=== PATIENT | male | born 1950 ===

== ENCOUNTER 2017-10-29 07:51 | Inpatient (IN) ==
[2017-10-29] MEDS ORDERED: Diphtheria/Tetanus/Pertussis Vaccine Inj 0.5 ML Syringe IM ONE (08:06)
[2017-10-29 08:20] LABS: Baso # (Auto) 0.1 th/mm3 (0.0-0.2); Baso % (Auto) 0.7 % (0.0-2.0); Eos # (Auto) 0.2 th/mm3 (0.0-0.4); Eos % (Auto) 0.8 % (0.0-4.0); Hematocrit 42.4 % (39.0-51.0); Hemoglobin 14.2 gm/dL (13.0-17.0); Lymph # (Auto) 2.8 th/mm3 (1.0-4.8); Lymph % (Auto) 14.3 % (9.0-44.0); Mean Corpuscular HGB Conc 33.5 % (32.0-36.0); Mean Corpuscular Hemoglobin 30.6 pg (27.0-34.0); Mean Corpuscular Volume 91.5 fL (80.0-100.0); Mean Platelet Volume 9.1 fL (7.0-11.0); Mono # (Auto) 0.7 th/mm3 (0.0-0.9); Mono % (Auto) 3.8 % (0.0-8.0); Neut # (Auto) 15.6 th/mm3 (1.8-7.7); Neut % (Auto) 80.4 % (16.0-70.0); Platelet Count 240 th/mm3 (150-450); Red Blood Count 4.64 mil/mm3 (4.50-5.90); Red Cell Distribution Width 14.3 % (11.6-17.2); White Blood Count 19.4 th/mm3 (4.0-11.0)
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
[2017-10-29 08:35] LABS: Activated Partial Thrombo Time 23.4 sec (24.3-30.1); INR 1.1 Ratio
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
[2017-10-29] MEDS ORDERED: Morphine Inj 4 MG/ML Vial IV.PUSH ONE ×2 (08:39→09:53)
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
[2017-10-29] MEDS ORDERED: [UNRECOGNIZED DRUG - REMARK] OTHER SCH (10:15)
[2017-10-29] MEDS ORDERED: Promethazine 25 MG Supp RECTAL PRN (10:16)
[2017-10-29] MEDS ORDERED: Morphine Inj 4 MG/ML Vial IV.PUSH PRN (10:16)
[2017-10-29] MEDS ORDERED: Post-op Orders (for Pharmacy) OTHER STA (10:16)
[2017-10-29] MEDS ORDERED: Bisacodyl 10 MG Supp RECTAL PRN (10:16)
[2017-10-29] MEDS ORDERED: Naloxone Inj 0.4 MG/ML Vial IV.PUSH PRN (10:24)
[2017-10-29] MEDS ORDERED: Methocarbamol Inj 1,000 MG in Sodium Chlor 0.9% Inj 240 ML IV.SIG SCH (11:00)
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
[2017-10-29] MEDS: Lidocaine 5% Patch T-DERMAL SCH (13:39)
[2017-10-29] MEDS: Morphine Inj 30 MG/30 ML PCA.VIAL PCA PRN (14:59)
--- NOTE | 2017-10-29 15:43 | ECHRPT ---
Indication: ELEVATED TROPONINS CONCLUSIONS The left ventricular systolic function is normal with an estimated ejection fraction in the range of 60-65%. Normal left ventricular size. Wall thickness is normal. No regional wall motion abnormalities are present on kaitlin limited views. BP: / HR: Rhythm: MEASUREMENTS (Male / Female) Normal Values Technical Quality:Very technically difficult study M-MODE LV Diastolic Diameter MM 6.3 cm 4.2 - 5.9 / 3.9 - 5.3 cm LV Systolic Diameter MM 4.4 cm LV Ejection Fraction MM Teich 55.9 % IVS Diastolic Thickness MM 1.1 cm 0.6 - 1.0 / 0.6 - 0.9 cm LVPW Diastolic Thickness MM 1.1 cm 0.6 - 1.0 / 0.6 - 0.9 cm LV Relative Wall Thickness MM 0.3 0.24 - 0.42 / 0.22 - 0.42 FINDINGS LEFT VENTRICLE The left ventricular systolic function is normal with an estimated ejection fraction in the range of 60-65%. Normal left ventricular size. Wall thickness is normal. No regional wall motion abnormalities are seen but not all LV segments are visualized. RIGHT VENTRICLE Free wall of RV tabitha normally. LEFT ATRIUM The left atrium appears unremarkable. RIGHT ATRIUM The right atrium appears unremarkable ATRIAL SEPTUM The interatrial septum not well visualized. AORTA The aortic root and proximal ascending aorta are not well visualized. MITRAL VALVE Structurally normal mitral valve. No MR. AORTIC VALVE The aortic valve is not well visualized. TRICUSPID VALVE Structurally normal tricuspid valve. No tricuspid regurgitation. PULMONARY VALVE The pulmonary valve is not well visualized. VESSELS The inferior vena cava is normal in size. PERICARDIUM No pericardial effusion. Conrad Garner MD (Electronically Signed) Final Date:29 October 2017 14:56
--- NOTE | 2017-10-29 16:42 | ECG ---
Date Performed: 10/29/2017 Time Performed: 09:05:35 PTAGE: 66 years EKG: Sinus rhythm RIGHT BUNDLE BRANCH BLOCK ABNORMAL ECG NO PREVIOUS TRACING DOCTOR: Kath Carranza Interpretating Date/Time 10/29/2017 16:39:55
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
[2017-10-29] MEDS: Methocarbamol Inj 1,000 MG in Sodium Chlor 0.9% Inj 240 ML IV.SIG SCH (22:08)
[2017-10-29] MEDS: Famotidine 20 MG Tablet PO SCH (22:10)
[2017-10-29] MEDS: Senna/Docusate Sodium 8.6/50 MG Tablet PO SCH (22:11)
[2017-10-30 03:24] LABS: Baso % (Auto) 0.1 % (0.0-2.0); Hemoglobin 13.4 gm/dL (13.0-17.0); Lymph # (Auto) 1.2 th/mm3 (1.0-4.8); Lymph % (Auto) 9.2 % (9.0-44.0); Mean Corpuscular HGB Conc 33.4 % (32.0-36.0); Mean Corpuscular Hemoglobin 30.6 pg (27.0-34.0); Mean Corpuscular Volume 91.5 fL (80.0-100.0); Mean Platelet Volume 9.2 fL (7.0-11.0); Mono # (Auto) 1.1 th/mm3 (0.0-0.9); Mono % (Auto) 8.4 % (0.0-8.0); Neut # (Auto) 10.5 th/mm3 (1.8-7.7); Neut % (Auto) 82.3 % (16.0-70.0); Platelet Count 168 th/mm3 (150-450); Red Blood Count 4.37 mil/mm3 (4.50-5.90); Red Cell Distribution Width 14.2 % (11.6-17.2); White Blood Count 12.7 th/mm3 (4.0-11.0)
[2017-10-30 03:49] LABS: Albumin 3.3 g/dL (3.4-5.0); Anion Gap 10 meq/L (5-15); Blood Urea Nitrogen 32 mg/dL (7-18); Calcium 7.9 mg/dL (8.5-10.1); Carbon Dioxide 23.3 meq/L (21.0-32.0); Chloride 110 meq/L (98-107); Glucose,Random 128 mg/dL (74-106); Potassium 4.5 meq/L (3.5-5.1); Sodium 143 meq/L (136-145)
[2017-10-30 03:58] LABS: Alanine Aminotransferase 1418 U/L (12-78); Alkaline Phosphatase 66 U/L (45-117); Aspartate Aminotransferase 1297 U/L (15-37); Total Protein 5.9 g/dL (6.4-8.2)
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
[2017-10-30] MEDS: Methocarbamol Inj 1,000 MG in Sodium Chlor 0.9% Inj 240 ML IV.SIG SCH (04:56)
--- NOTE | 2017-10-30 08:54 | P.PNCA ---
Subjective Interval history: Pain with inspiration. No angina-like pain Physical Exam Vital signs: Vital Signs 10/29/17 10:12 10/29/17 10:58 10/29/17 11:10 Temperature Pulse Rate 78 Respiratory Rate 21 26 H 21 Blood Pressure 116/64 Pulse Oximetry 99 10/29/17 13:00 10/29/17 14:00 10/29/17 15:00 Temperature Pulse Rate 80 88 101 H Respiratory Rate 20 24 24 Blood Pressure 130/75 112/67 116/72 Pulse Oximetry 100 98 100 10/29/17 16:00 10/29/17 17:00 10/29/17 18:00 Temperature 99.1 F Pulse Rate 103 H 101 H 106 H Respiratory Rate 25 H 26 H 18 Blood Pressure 116/72 126/78 119/55 L Pulse Oximetry 100 100 100 10/29/17 19:00 10/29/17 20:00 10/30/17 00:00 Temperature 97.6 F 98.7 F Pulse Rate 100 H 100 H 113 H Respiratory Rate 30 H 26 H Blood Pressure 102/55 L 139/79 Pulse Oximetry 100 100 10/30/17 04:00 10/30/17 08:16 Temperature 98.7 F Pulse Rate 108 H Respiratory Rate 22 Blood Pressure 119/76 Pulse Oximetry 99 98 Intake & Output 10/29/17 10/30/17 10/30/17 18:59 06:59 18:59 Intake Total 250 / 250 1490 / 1490 250 / 250 Output Total 0 / 0 Balance 250 / 250 1490 / 1490 250 / 250 Weight 100.6 kg 100.6 kg Intake: IV 250 / 250 1250 / 1250 250 / 250 LR 1000 mL Inj 1,000 ML @ 100 1000 / 1000 mls/hr IV.CONT .Q10H [facility] Rx#: [id number] Robaxin Inj 1,000 MG In NS Inj 250 / 250 250 / 250 250 / 250 240 ML @ 500 mls/hr IV.SIG Q8H [facility] Rx#:[id number] Oral 240 / 240 Output: Urine 0 / 0 Other: Date of Last Bowel Movement 10/29/17 10/29/17 # Bowel Movements 0 Weight On Admission 100.6 kg Narrative: Alert VSS Tele - brief sinus matty yest and one ventricular couplet Chest clear CV S1S2 RRR no edema Assessment and Plan - Assessment (1) Syncope Code(s): R55 - Syncope and collapse Status: Acute Plan: Strongly suggestive of vasovagal: lifetime history associated with needles (2) Elevated troponin Code(s): R74.8 - Abnormal levels of other serum enzymes Status: Acute Plan: Suspicious for myocardial contusion - overall LV/RV function preserved
[2017-10-30] MEDS: Morphine Inj 30 MG/30 ML PCA.VIAL PCA PRN (09:44)
[2017-10-30] MEDS: Famotidine 20 MG Tablet PO SCH (10:49)
[2017-10-30] MEDS: Lidocaine 5% Patch T-DERMAL SCH (10:50)
[2017-10-30] MEDS: Senna/Docusate Sodium 8.6/50 MG Tablet PO SCH (10:50)
[2017-10-30] MEDS ORDERED: Sodium Chlor 0.9% Inj 500 ML IV.SIG ONE ×2 (12:00)
[2017-10-30] MEDS ORDERED: Lidocaine PF 1% Inj 5 ML Syringe INFILTRATN ONE (12:00)
[2017-10-30] MEDS ORDERED: Phenylephrine/NS 1000 MCG/10ML Syringe IV.PUSH ONE (12:00)
[2017-10-30] MEDS ORDERED: Esmolol Bolus Inj 100 MG/10 ML Vial IV.PUSH ONE (12:00)
[2017-10-30] MEDS ORDERED: Normosol-R pH 7.4 Inj 4,000 ML IV.CONT ONE (12:00)
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
--- NOTE | 2017-10-30 15:48 | MR ---
EXAM DATE: 10/30/2017 3:18 PM EDT AGE/SEX: 66 years / Male INDICATIONS: Trauma. Weakness and intermittent tingling in hands, back spasms CLINICAL DATA: This is the patient's subsequent encounter. Patient reports that signs and symptoms h ave been present for 2 days and indicates a pain score of 5/10. MEDICAL/SURGICAL HISTORY: . L Ear Squamous Cell Carcinoma and Basal Cell Cholecystectomy. R 2n d digit amputation, Tonsillectomy, R Knee Meniscus COMPARISON: [facility] – [place], [place] CERVICAL SPINE W/O CONTRAST, 10/29/2017. . TECHNIQUE: Multiplanar, multisequence MRI examination of the cervical spine was performed without co ntrast. ALIGNMENT: A grade 1 anterolisthesis has developed at the C6-7 level. Craniocervical and cervical ve rtebral body alignment is otherwise intact.. FACET AND OSSEOUS STRUCTURES: Traumatic subluxation at the C6-7 level is associated with significant edematous changes along the posterior ligamentous structures and in the prevertebral space at the sa me level. Bilateral facet subluxation with perched facets are noted. The traumatic subluxation or per ched facets were not identified on the posttraumatic CT of the cervical spine. The vertebral bodies are intact without evidence of compression deformity. INTERVERTEBRAL DISC SPACES: Fluid and edema has developed in the C6-7 intervertebral disc. There is anterior prevertebral soft tissue swelling at this level as well. Posterior marginal spur off the C7 vertebral body is causing anterior effacement of the spinal cord. There is [id number] spinal co rd effacement. Moderate degenerative disc disease is present at the remaining levels. There is disc space narrowing, vertebral spondylosis and reactive endplate changes. There is no evidence of traumatic disc herniati on. NEUROLOGIC STRUCTURES: Mild to moderate compression of the spinal cord is noted at C6-7. There is T2 hyperintensity in the spinal cord just below the compressed area characteristic of spinal cord edema. This is located at the C7 level. CONCLUSION: 1. Grade 1 traumatic subluxation at C6-7 not present on the initial post trauma CT of the cervical s pine. 2. Bilateral perched facets at C6-7 3. Spinal stenosis with mild to moderate spinal cord compression and spinal cord edema at C6-7 4. Significant ligamentous injury and soft tissue swelling along the posterior elements of the cervi sreekanth spine. 5. Mild prevertebral soft tissue swelling and fluid extending into the C6-7 disc 6. Stat report given to charge nurse. Electronically signed by: Neeraj Quispe MD 10/30/2017 3:47 PM EDT
[2017-10-30] MEDS ORDERED: Propofol Inj 500 MG/50 ML Vial ONE ×3 (17:01→20:29)
[2017-10-30] MEDS ORDERED: Ketamine Inj 500 MG/10 ML Vial ONE (17:01)
[2017-10-30] MEDS ORDERED: Thrombin Topical Soln 5,000 UNIT Vial TOPICAL ONE (17:02)
[2017-10-30] MEDS ORDERED: ceFAZolin 2 GM Premix Inj 2 GM/50 ML PIGGYBACK IV.SIG ONE (17:02)
[2017-10-30] MEDS ORDERED: Gelatin Size 100 Topical Foam ONE (17:02)
[2017-10-30] MEDS ORDERED: Lidocaine 1%/Epinephrine 1:100,000 Inj 30 ML Vial ONE (17:04)
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
[2017-10-30] MEDS ORDERED: Artificial Tears Opth Oint 3.5 GM Tube ONE (18:55)
[2017-10-30] MEDS ORDERED: fentaNYL Citrate Inj 100 MCG/2 ML Ampul ONE ×3 (19:29→22:59)
[2017-10-30 21:53] LABS: ABG Base Excess -3.3 mmol/L (-2-2); ABG PCO2 40 mmHg (38-42); ABG PO2 106 mmHG (61-120)
[2017-10-31] MEDS ORDERED: fentaNYL Citrate Inj 100 MCG/2 ML Ampul ONE (01:29)
--- NOTE | 2017-10-31 01:42 | P.OP ---
- Preoperative Diagnosis (1) Contusion of cervical cord (2) Dislocation of cervical facet joint - Postoperative Diagnosis (1) Contusion of cervical cord (2) Dislocation of cervical facet joint Date of procedure: 10/31/17 Procedure: 1. Intraoperative reduction of C6-7 left facet dislocation with intraoperative fluoroscopy C arm imaging 2. C5-6 and C6-7 anterior cervical discectomy, partial, greater than 50% C6 corpectomy for spinal cord decompression. 3. C5-6 and C6-7 anterior interbody fusion, allograft bone 4. C5-C7 anterior cervical instrumentation 5. Halo placement Anesthesia: GETA Surgeon: Jori Tesfaye MD Plumbing Warehouse Helper: Peggy Rivera Estimated blood loss (mL): 100 Pathology: none sent Operation and Findings: Findings: Bilateral dural tear at the takeoff of the exiting C7 nerve roots. Circumferential disruption of the C6-7 annulus, anterior and posterior longitudinal ligaments Procedure in detail: The patient was brought into the operating room and positioned in supine position on the 3080 table with the head and neck in neutral position. Grant catheter was in place. Lines were established by Anesthesia. With the patient under mild sedation, responsive and able to talk and follow commands, the undersigned manually applied traction to the head and the left C6- 7 facet subluxation was visualized. The C6-7 level was gently and mildly distracted sufficient to unlock the left C6-7 facet subluxation back into neutral position. Manual traction was then released and the patient maintained in position with the cervical collar. Gen. endotracheal anesthesia was induced without difficulty, taking care not to significantly flex or extend the patient's neck during intubation and positioning. Leads for intraoperative neuro monitoring were placed and a baseline study obtained. All extremities were appropriately padded. The neck and upper chest were shaved with clippers and sterilely prepped and draped. Appropriate timeout procedure was performed with all personnel present and in agreement 1% Xylocaine with epinephrine was used for local infiltration over the incision site which was made transversely at the left C6 level and carried sharply down through the platysma muscle. The exposure was continued medial to the sternocleidomastoid muscle and carotid artery, and lateral to the trachea and esophagus. The prevertebral fascia was elevated away from the anterior longitudinal ligament with a Kitner sponge. The longus coli muscle on each side was elevated with the Hawkins elevator. The self-retaining retractor was placed with the blades beneath the longus coli muscle on each side. The appropriate levels were confirmed with intraoperative C-arm and preoperative imaging studies. The microscope was brought into place and used for the remainder of the procedure including the closure. The 14 mm distraction pins were used as needed for gentle distraction during the procedure. The procedure was performed sequentially at the C6-7 followed by C5-6 levels. At each level the anterior osteophyte was resected with the Leksell rongeur. There was noted to be a total disruption of the C6-7 anterior as well as posterior disc and annulus and the anterior and posterior longitudinal ligaments. The disc and annulus was incised with a 15 blade knife and discectomy performed with pituitary biopsy forceps and straight and angled curettes. The TPS drill with the 5 mm barrel bur was used to decorticate the endplates and removed the majority of the osteophyte along the anterior spinal canal as well as the right and left uncovertebral joint. The thin ligament dissector was used to free up the posterior annulus and ligament from the vertebral body margin. The remainder of the resection of the posterior annulus and ligament as well as the posterior osteophyte and bilateral uncovertebral joint was performed with the 2 and 3 mm thin footplate Kerrison rongeurs. There was noted to be a tear in the dura at the takeoff of the bilateral C7 nerve root into the neural foramen. On the left side some of the nerve fibers were protruding through the dural tear. A small amount of CSF leakage was encountered at the bilateral C7 nerve root exit. This was covered with a very thin layer of Gelfoam and thrombin. No further CSF leakage was noted throughout the procedure. Significant posterior osteophyte was encountered and extensively removed. The posterior vertebral bodies were undercut with the Kerrison rongeur and the TPS drill with the 4 mm belen bur as needed to fully decompress the anterior spinal canal. The appropriate size V G2 bone graft was then placed at each level with a good fit of the graft. The blunt nerve hook was used to probe beneath the bone graft to ensure that there was no impingement on the thecal sac or exiting nerve roots. The appropriate size Precision anterior cervical plate was then chosen and the bone screws were placed with the 14 mm fixed screws at the caudal most level and the 14 mm variable screws at the cephalad level of the decompression. The screws were firmly secured and the locking cams engaged. The entire construct was checked with intraoperative C-arm and felt to be satisfactory. The 10 [place] drain was brought out through a small incision in the left lower neck and secured to the skin with nylon suture and attached to sterile suction. The closure was performed with 3-0 Vicryl running for the platysma and interrupted for the subcutaneous closure, with 4-0 Vicryl running for the subcuticular closure. A dressing of sterile Mastisol, Steri-Strips, and Primapore dressing was placed. An extensive anterior decompression was performed. It was thus elected to defer posterior decompression pending postoperative MRI, as it was felt that there is adequate overall decompression of the canal and reduction of the fracture subluxation through the anterior approach. However due to the severity of the ligament disruption, it was elected to place the patient in a halo vest at the end of the procedure. This was discussed with his on the telephone call the patient was in the operating room, and she appeared to understand and agree with this plan. The bilateral occipital regions were shaved with clippers and the frontal and occipital scalp prepped with Betadine. Present Xylocaine with epinephrine was used for local infiltration of the pin placement sites at the bilateral frontal and occipital regions. The undersigned maintain control of the halo ring in the pins were gradually advanced into the cranium and secured with the torque wrench. The patient was then slid onto the posterior halo vest using the slide board from the operating table to the intensive care bed. The front of the halo vest was then secured and the posts were secured between the jacket and the halo ring. Final x-ray reveals satisfactory cervical alignment after halo placement. All counts were correct at the end of the case. Estimated blood loss was 100 cc No specimen was sent to pathology. Intraoperative neuro monitoring remained stable during the procedure.
[2017-10-31] MEDS: Famotidine 20 MG Tablet PO SCH ×3 (01:52→20:55)
[2017-10-31] MEDS: Senna/Docusate Sodium 8.6/50 MG Tablet PO SCH ×3 (01:52→20:55)
[2017-10-31] MEDS ORDERED: Propofol 1000 mg/100 ml Inj 1,000 MG/100 ML BOTTLE IV.CONT PRN (02:30)
[2017-10-31] MEDS ORDERED: fentaNYL 10 mcg/mL Premix Drip 2,500 MCG/250 ML BAG IV.SIG PRN (02:34)
[2017-10-31 02:35] LABS: ABG Base Excess 0.5 mmol/L (-2-2); ABG PCO2 45 mmHg (38-42); ABG PO2 72 mmHg (61-120)
[2017-10-31] MEDS ORDERED: Albumin Human 5% Inj 500 ML IV.SIG ONE (03:00)
[2017-10-31 03:08] LABS: Alanine Aminotransferase 1067 U/L (12-78); Albumin 2.6 g/dL (3.4-5.0); Alkaline Phosphatase 62 U/L (45-117); Anion Gap 9 meq/L (5-15); Aspartate Aminotransferase 631 U/L (15-37); Blood Urea Nitrogen 29 mg/dL (7-18); Calcium 7.3 mg/dL (8.5-10.1); Carbon Dioxide 25.1 meq/L (21.0-32.0); Chloride 107 meq/L (98-107); Glomerular Filtration Rate Greater Than 89 mL/min (>89); Glucose,Random 126 mg/dL (74-106); Potassium 4.4 meq/L (3.5-5.1); Sodium 141 meq/L (136-145); Total Protein 5.2 g/dL (6.4-8.2)
[2017-10-31] MEDS: fentaNYL 10 mcg/mL Premix Drip 2,500 MCG/250 ML BAG IV.SIG PRN (03:08)
[2017-10-31] MEDS: Propofol 1000 mg/100 ml Inj 1,000 MG/100 ML BOTTLE IV.CONT PRN ×5 (03:09→23:53)
[2017-10-31 03:32] LABS: Hematocrit 33.2 % (39.0-51.0); Hemoglobin 11.2 gm/dL (13.0-17.0); Mean Corpuscular HGB Conc 33.6 % (32.0-36.0); Mean Corpuscular Hemoglobin 30.8 pg (27.0-34.0); Mean Corpuscular Volume 91.7 fL (80.0-100.0); Mean Platelet Volume 9.7 fL (7.0-11.0); Platelet Count 139 th/mm3 (150-450); Red Blood Count 3.63 mil/mm3 (4.50-5.90); Red Cell Distribution Width 14.2 % (11.6-17.2); White Blood Count 15.6 th/mm3 (4.0-11.0)
--- NOTE | 2017-10-31 04:27 | XR ---
EXAM DATE: 10/31/2017 4:05 AM EDT AGE/SEX: 66 years / Male INDICATIONS: Trauma. CLINICAL DATA: This is the patient's subsequent encounter. Patient reports that signs and symptoms h ave been present for 2 days and indicates a pain score of Nonresponsive. MEDICAL/SURGICAL HISTORY: . Pulmonary contusion. Multiple rib fractures. . Cervical Fusion. Hernadez lo Placement. COMPARISON: C, CHEST 1V SINGLE AP, 10/30/2017. . FINDINGS: ETT at the level of the clavicles. No significant pneumothorax or pleural effusion. Minimal airspace disease at the left lung base. Cardiomediastinal contours are stable. Remainder of exam is unchanged. CONCLUSION: 1. ETT in good position. 2. Minimal left lung base atelectasis. Electronically signed by: Severo Krishna MD 10/31/2017 4:25 AM EDT
[2017-10-31 05:51] LABS: Baso # (Auto) 0.1 th/mm3 (0.0-0.2); Baso % (Auto) 0.4 % (0.0-2.0); Eos % (Auto) 0.1 % (0.0-4.0); Hematocrit 30.1 % (39.0-51.0); Hemoglobin 10.1 gm/dL (13.0-17.0); Lymph # (Auto) 1.1 th/mm3 (1.0-4.8); Lymph % (Auto) 8.2 % (9.0-44.0); Mean Corpuscular HGB Conc 33.4 % (32.0-36.0); Mean Corpuscular Hemoglobin 30.4 pg (27.0-34.0); Mean Corpuscular Volume 90.9 fL (80.0-100.0); Mean Platelet Volume 9.2 fL (7.0-11.0); Mono # (Auto) 0.8 th/mm3 (0.0-0.9); Mono % (Auto) 5.6 % (0.0-8.0); Neut # (Auto) 11.6 th/mm3 (1.8-7.7); Neut % (Auto) 85.7 % (16.0-70.0); Platelet Count 117 th/mm3 (150-450); Red Blood Count 3.32 mil/mm3 (4.50-5.90); Red Cell Distribution Width 14.2 % (11.6-17.2); White Blood Count 13.5 th/mm3 (4.0-11.0)
[2017-10-31 06:11] LABS: Alanine Aminotransferase 908 U/L (12-78); Albumin 2.9 g/dL (3.4-5.0); Anion Gap 8 meq/L (5-15); Aspartate Aminotransferase 535 U/L (15-37); Blood Urea Nitrogen 27 mg/dL (7-18); Calcium 7.5 mg/dL (8.5-10.1); Carbon Dioxide 25.8 meq/L (21.0-32.0); Chloride 107 meq/L (98-107); Glomerular Filtration Rate Greater Than 89 mL/min (>89); Glucose,Random 115 mg/dL (74-106); Potassium 4.3 meq/L (3.5-5.1); Sodium 141 meq/L (136-145)
[2017-10-31 06:16] LABS: Alkaline Phosphatase 54 U/L (45-117); Total Protein 5.4 g/dL (6.4-8.2); Troponin I 0.27 ng/mL (0.02-0.05)
[2017-10-31] MEDS: Lidocaine 5% Patch T-DERMAL SCH (09:00)
--- NOTE | 2017-10-31 09:01 | XR ---
EXAM DATE: 10/31/2017 12:29 AM EDT AGE/SEX: 66 years / Male INDICATIONS: ACDF CLINICAL DATA: This is the patient's subsequent encounter. Patient reports that signs and symptoms h ave been present for 2 days and indicates a pain score of Nonresponsive. MEDICAL/SURGICAL HISTORY: Non-responsive. Non-responsive. COMPARISON: [facility] [place] CERVICAL SPINE W/O CONTRAST, 10/30/2017. . FINDINGS: Single lateral view of the cervical spine demonstrates postsurgical changes following anterior cervic al fusion C5-C7. Anterior fusion plate with fixation screws are noted. Cages are identified within th e C5-6 and C6-7 disc spaces. Her goal alignment is well-maintained without significant listhesis. Facet joints are satisfactory aligned. The subluxed C6-7 facet joints have been reduced and are in sa tisfactory alignment. CONCLUSION: Satisfactory postoperative appearance of the cervical spine following anterior cervical fusion from C 5 through C7 No evidence of significant listhesis or facet subluxation. Electronically signed by: Neeraj Quispe MD 10/31/2017 9:00 AM EDT
--- NOTE | 2017-10-31 10:59 | P.PNNS ---
Subjective Interval history: 10/30: The patient went emergently for an intraoperative reduction of a C6-7 left facet dislocation followed by a C5-6 and C6-7 anterior cervical discectomy with interbody fusion and instrumentation. He was also placed in a Halo while in surgery. Post-operatively the patient returned to the ISC unit for further care and management. 10/31: Initially went to see patient this morning and he was in MRI. Therefore the patient was seen after he returned. He is comatose but does have propofol infusing for sedation. He had no response to any stimulation upon evaluation. The Halo is in place and the pin sites look good. <Jacek Aragon - Last Filed: 10/31/17 12:20> Interval history: The exam, history, and the medical decision-making described in the above note were completed with the assistance of the mid-level provider. I reviewed and agree with the findings presented. I attest that I had a [id number] encounter with the patient on the same day, and personally performed and documented my assessment and findings in the medical record. Patient remains intubated sedated postoperative. Halo intact. Wean sedation as tolerated <Jori Tesfaye B - Last Filed: 11/05/17 21:10> Physical Exam Vital signs: Vital Signs 10/30/17 11:38 10/30/17 12:00 10/30/17 14:00 Temperature 97.7 F Pulse Rate 109 H 116 H 110 H Respiratory Rate 22 25 H Blood Pressure 122/58 L Pulse Oximetry 95 10/30/17 15:29 10/30/17 16:00 10/31/17 01:30 Temperature 98.1 F Pulse Rate 114 H 112 H Respiratory Rate 18 26 H 24 Blood Pressure 143/83 H Pulse Oximetry 93 L 100 10/31/17 02:00 10/31/17 02:25 10/31/17 03:31 Temperature Pulse Rate 107 H 111 H Respiratory Rate 22 Blood Pressure Pulse Oximetry 96 10/31/17 04:00 10/31/17 04:01 10/31/17 08:45 Temperature 100.2 F H Pulse Rate 118 H 117 H Respiratory Rate 25 H 23 24 Blood Pressure 124/72 Pulse Oximetry 93 L 96 96 Intake & Output 10/30/17 10/31/17 10/31/17 18:59 06:59 18:59 Intake Total 2500 / 2500 3300 / 3300 Output Total 1175 / 1175 1670 / 1670 Balance 1325 / 1325 1630 / 1630 Weight 116.6 kg Intake: IV 1300 / 1300 500 / 500 LR 1000 mL Inj 1,000 ML @ 50 1000 / 1000 mls/hr IV.CONT .Q20H [facility] Rx#: [id number] Alburx 5% Inj 500 ML @ 250 mls/ 500 / 500 hr IV.SIG NOW ONE Rx#:[id number] Robaxin Inj 1,000 MG In NS Inj 250 / 250 240 ML @ 500 mls/hr IV.SIG Q8H [facility] Rx#:[id number] Ancef 2 GM Premix Inj 2 gm In 50 / 50 50 ml @ 0 mls/hr IV.SIG .STK- MED ONE Rx#:[id number] Oral 1200 / 1200 Anesthesia Amount 2800 / 2800 Output: Estimated Blood Loss 100 / 100 Urine Amount (Catheter) 1175 / 1175 1550 / 1550 Indwelling Urethral Catheter 1175 / 1175 1550 / 1550 Wound Drainage # 1 Anterior Neck Anatoly Other: Date of Last Bowel Movement 10/29/17 10/29/17 # Bowel Movements 0 Narrative: GENERAL: Comatose but sedated w/propofol 25 mcg/kg/min infusing for sedation. He also has fentanyl 100 mcg/hr infusing for pain control. He is intubated and on PRVC A/C settings. He is not in any apparent distress. HEENT: Abrasions & ecchymosis noted to face. Pin sites for Halo w/o any drainage , erythema or streaking noted. Pupils 2 mm brisk bilaterally. No otorrhea or rhinorrhea noted. Orally intubated. OGT. NECK: Halo in place. Dry & intact anterior neck surgical incision dressing. No JVD. Trachea midline. RESPIRATORY: Essentially CTAB w/o W/R/R, equal excursion, nonlaboured, intubated & on PRVC A/C settings. CARDIOVASCULAR: S1S2 w/regular but rapid rate w/o M/G/R. Monitor is sinus tachycardia w/o any ectopy noted. GASTROINTESTINAL: Abdomen rotund but soft, no bowel sounds appreciated. GENITOURINARY: Grant catheter to BSD w/clear yellow urine. MUSCULOSKELETAL: No evident deformity or clubbing. Right hand second digit w/ well healed distal phalanx amputation. NEUROLOGICAL: Comatose but sedated w/propofol. No eye opening to any stimulation. Nonverbal, intubated. Did not follow any commands. No extremity response to local or central noxious stimulation. - Urinary Catheter Management Indwelling Urethral Catheter Cath placed during this visit: no Reason for continuing: Hourly intake/output <Jacek Aragon - Last Filed: 10/31/17 12:20> Vital signs: Vital Signs 11/05/17 00:00 11/05/17 00:08 11/05/17 04:00 Temperature 99.9 F H 100.1 F H Pulse Rate 101 H 112 H Respiratory Rate 24 24 24 Blood Pressure 110/51 L 129/52 L Pulse Oximetry 98 98 99 11/05/17 04:16 11/05/17 08:00 11/05/17 08:16 Temperature 100.1 F H Pulse Rate 110 H Respiratory Rate 24 24 24 Blood Pressure 120/50 L Pulse Oximetry 99 99 98 11/05/17 08:49 11/05/17 11:30 11/05/17 12:00 Temperature 100.1 F H 101.1 F H Pulse Rate 111 H 119 H Respiratory Rate 24 24 30 H Blood Pressure 116/85 117/51 L Pulse Oximetry 99 95 95 11/05/17 16:00 11/05/17 17:08 11/05/17 21:02 Temperature 100.5 F H Pulse Rate 118 H Respiratory Rate 16 23 16 Blood Pressure 108/58 L Pulse Oximetry 97 100 Intake & Output 11/05/17 11/05/17 11/06/17 06:59 18:59 06:59 Intake Total 2194 / 2194 1578 / 1578 100 / 100 Output Total 1500 / 1500 1200 / 1200 Balance 694 / 694 378 / 378 100 / 100 Weight 122.7 kg Intake: IV 1850 / 1850 1250 / 1250 100 / 100 Neosynephrine Inj 40 MG In D5W 100 / 100 Inj 496 ML @ 40 MCG/MIN 30 mls/ hr IV.CONT TITRATE PRN Rx#: [id number] Diprivan 1000 mg/100 ml Inj 1, 400 / 400 200 / 200 100 / 100 000 mg In 100 ml @ 5 MCG/KG/MIN 3.018 mls/hr IV.CONT TITRATE PRN Rx#:[id number] LR 1000 mL Inj 1,000 ML @ 75 1000 / 1000 300 / 300 mls/hr IV.SIG .[id number] [facility] Rx#: [id number] Zosyn 4.5 GM Premix 4.5 gm In 200 / 200 200 / 200 100 ml @ 200 mls/hr IV.SIG Q6H [facility] Rx#:[id number] KCl 40 mEq Premix Inj 40 meq In 200 / 200 100 ml @ 25 mls/hr IV.SIG Q2H PRN Rx#:[id number] fentaNYL 10 mcg/mL Premix Drip 250 / 250 250 / 250 2,500 mcg In 250 ml @ 50 MCG/HR 5 mls/hr IV.SIG TITRATE PRN Rx #:[id number] Tube Feeding 284 / 284 268 / 268 Tube Irrigant 60 / 60 Water Bolus Amount 60 / 60 Output: Stool 0 / 0 Urine Amount (Catheter) 1500 / 1500 1200 / 1200 Indwelling Urethral Catheter 1500 / 1500 1200 / 1200 Gastric Drainage 0 / 0 0 / 0 Oral Orogastric Tube 0 / 0 0 / 0 Other: Date of Last Bowel Movement 11/02/17 11/05/17 # Bowel Movements 0 1 - Urinary Catheter Management Indwelling Urethral Catheter Cath placed during this visit: no <Jori Tesfaye - Last Filed: 11/05/17 21:10> Assessment and Plan - Plan Impression: (1) Contusion of cervical cord (2) Dislocation of cervical facet joint The patient is nonresponsive when seen but does have propofol for sedation. Pupils are equal & reactive. Past 24 hrs: 100.4 T max. Tachycardia. PEGGY drain output of 20 mL following surgery as of shift change this morning. Reviewed labs for today. Elevated WBC count from yesterday but improved from early this morning. Drop in haemoglobin level & platelet count. Sodium 141. eGFR >89. Elevated but improved transaminases. Improved troponin I. MRI cervical spine not available for review. POD #0 () s/p: 1. Intraoperative reduction of C6-7 left facet dislocation with intraoperative fluoroscopy C arm imaging 2. C5-6 and C6-7 anterior cervical discectomy, partial, greater than 50% C6 corpectomy for spinal cord decompression. 3. C5-6 and C6-7 anterior interbody fusion, allograft bone 4. C5-C7 anterior cervical instrumentation 5. Halo placement Plan: Primary mangement per Trauma Service. Neuro checks. Monitor PEGGY drain output. Hold pharmacologic DVT prophylaxis. Mechanical DVT prophylaxis. Stress ulcer prophylaxis. <Jacek Aragon - Last Filed: 10/31/17 12:20> - Assessment (1) Contusion of cervical cord Code(s): S14.109A - Unspecified injury at unspecified level of cervical spinal cord, initial encounter Status: Acute Qualifiers: Encounter type: initial encounter Qualified Code(s): S14.109A - Unspecified injury at unspecified level of cervical spinal cord, initial encounter (2) Elevated troponin Code(s): R74.8 - Abnormal levels of other serum enzymes Status: Acute <Jori Tesfaye - Last Filed: 11/05/17 21:10>
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
--- NOTE | 2017-10-31 12:02 | MR ---
EXAM DATE: 10/31/2017 11:29 AM EDT AGE/SEX: 66 years / Male INDICATIONS: Myelopathy. Post halo placement and cervical fusion. CLINICAL DATA: This is the patient's subsequent encounter. Patient reports that signs and symptoms h ave been present for 2 days and indicates a pain score of Nonresponsive. MEDICAL/SURGICAL HISTORY: Carcinoma, skin cancer. Cholecystectomy. Tonsillectomy. Fusion, cer vical. Halo placement. Right knee meniscus. 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 COMPARISON: [facility] – [place], CERVICAL SPINE W/O CONTRAST, 10/30/2017. [facility] – [place], CERVICAL SPINE LAT ONLY 1V, . . TECHNIQUE: Multiplanar, multisequence MRI examination of the cervical spine was performed without co ntrast. FINDINGS: Vertebrae: There is an anterior cervical fusion plate at the C5-C7 levels secured by anterior screws . There is stabilization devices or bone plugs at the C5-C6 and C6-C7 levels. There is increased sign al on the T2-weighted images at the C5-C6 and C6-C7 disc levels. There is prevertebral soft tissue sw elling. There is increased signal/edema within the posterior soft tissues in the cervical spine. The previously seen anterior subluxation of C6 on C7 has been corrected. Alignment: Normal. Cord: There is increased signal within the cord at the C7 level. This area measures approximately 2 cm in length and the stents from the C6-C7 disc level to the superior aspect of T1. This was present on the prior exam. Post Fossa: The cerebellar tonsils are normal in position. C2-C3: The thecal sac has a normal configuration. There is no evidence of disc herniation or spinal canal stenosis. The neural foramina are patent bilaterally. There is bilateral facet hypertrophy. C3-C4: The thecal sac has a normal configuration. There is no evidence of disc herniation or spinal canal stenosis. There is left facet hypertrophy with narrowing of the left neural foramina. The righ t neural foramina is patent.. C4-C5: There is minimal diffuse disc bulge. Significant stenosis is not seen. There is facet hypertr ophy and uncovertebral hypertrophy. There is narrowing of the neural foramina. C5-C6: The patient is status post fusion at this level. Significant stenosis is not seen. There is u ncovertebral hypertrophy and neural foraminal narrowing. C6-C7: The patient is status post fusion at this level. A significant impression from the disc level on thecal sac is not seen. There is fluid in the epidural space at this level. This fluid is predomi nantly high signal. There is an area of low signal seen in the left posterior lateral epidural space. This could be some hemorrhage with deoxyhemoglobin. This finding was present on the prior exam.. C7-T1: No epidural impressions seen. There is facet hypertrophy. CONCLUSION: 1. Status post fusion at the C5-C7 levels with correction of the previously seen anterior subluxatio n of C6 on C7. 2. Persistent area of increased signal within the cord at the C7 level. This appears unchanged. 3. Persistent fluid in the epidural space at the C6-C7 level representing either an effusion or some degree of hemorrhage. This is unchanged from the prior exam. 4. Degenerative change as described above. Electronically signed by: Grover Santana MD 10/31/2017 12:01 PM EDT
[2017-10-31] MEDS: Oral Hygiene Kit OROPHARYNG SCH ×2 (12:53→15:58)
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
[2017-10-31] MEDS: Chlorhexidine 0.12% Oral Kit 15 ML UDC OROPHARYNG SCH (20:55)
[2017-11-01] MEDS: Oral Hygiene Kit OROPHARYNG SCH ×4 (01:17→16:02)
[2017-11-01] MEDS: Propofol 1000 mg/100 ml Inj 1,000 MG/100 ML BOTTLE IV.CONT PRN ×4 (04:45→19:30)
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
[2017-11-01] MEDS: Famotidine 20 MG Tablet PO SCH ×2 (08:17→21:36)
[2017-11-01] MEDS: Senna/Docusate Sodium 8.6/50 MG Tablet PO SCH ×2 (08:17→21:36)
[2017-11-01] MEDS: Chlorhexidine 0.12% Oral Kit 15 ML UDC OROPHARYNG SCH ×2 (08:18→21:36)
[2017-11-01 11:47] LABS: ABG Base Excess 5.7 mmol/L (-2-2); ABG PCO2 48 mmHg (38-42); ABG PO2 71 mmHg (61-120)
[2017-11-01 13:36] LABS: Anion Gap 5 meq/L (5-15); Blood Urea Nitrogen 34 mg/dL (7-18); Calcium 8.3 mg/dL (8.5-10.1); Carbon Dioxide 30.9 meq/L (21.0-32.0); Chloride 107 meq/L (98-107); Glomerular Filtration Rate Greater Than 89 mL/min (>89); Glucose,Random 123 mg/dL (74-106); Potassium 4.6 meq/L (3.5-5.1); Sodium 143 meq/L (136-145)
--- NOTE | 2017-11-01 14:05 | P.PNNS ---
Subjective Interval history: 10/30: The patient went emergently for an intraoperative reduction of a C6-7 left facet dislocation followed by a C5-6 and C6-7 anterior cervical discectomy with interbody fusion and instrumentation. He was also placed in a Halo while in surgery. Post-operatively the patient returned to the ISC unit for further care and management. 10/31: Initially went to see patient this morning and he was in MRI. Therefore the patient was seen after he returned. He is comatose but does have propofol infusing for sedation. He had no response to any stimulation upon evaluation. The Halo is in place and the pin sites look good. 11/01: This afternoon the patient is lethargic when seen. He continues to have propofol infusing for sedation and remains intubated and mechanically ventilated. He did spontaneously lift both upper extremities off the bed when this practitioner spoke to him. He did not follow any commands but did move the upper extremities to noxious stimulation but not the lower. <Jacek Aragon E - Last Filed: 11/01/17 14:10> Physical Exam Vital signs: Vital Signs 10/31/17 16:00 10/31/17 16:30 10/31/17 18:00 Temperature 99.7 F H Pulse Rate 122 H 123 H 122 H Respiratory Rate 20 21 Blood Pressure 116/73 Pulse Oximetry 99 99 10/31/17 19:45 10/31/17 20:00 10/31/17 22:00 Temperature 100.4 F H Pulse Rate 126 H 126 H Respiratory Rate 20 14 Blood Pressure 97/68 L Pulse Oximetry 98 94 L 10/31/17 23:59 11/01/17 00:00 11/01/17 02:00 Temperature 100.3 F H Pulse Rate 125 H 126 H Respiratory Rate 18 17 Blood Pressure 105/67 Pulse Oximetry 100 95 11/01/17 03:48 11/01/17 04:00 11/01/17 06:00 Temperature 99.7 F H Pulse Rate 122 H 120 H Respiratory Rate 19 22 Blood Pressure 98/64 L Pulse Oximetry 97 95 11/01/17 08:00 11/01/17 08:50 11/01/17 12:02 Temperature 100.7 F H Pulse Rate 121 H 122 H 131 H Respiratory Rate 21 16 24 Blood Pressure 129/79 Pulse Oximetry 93 L 93 L 97 Intake & Output 10/31/17 11/01/1711/01/18 18:59 06:59 18:59 Intake Total 3322 / 3322 3308 / 3308 1100 / 1100 Output Total 1260 / 1260 1410 / 1410 Balance 2061 / 206 1898 / 1898 1100 / 1100 Weight 112.3 kg Intake: IV 3200 / 3200 1300 / 1300 1100 / 1100 LR 1000 mL Inj 1,000 ML @ 50 1000 / 1000 mls/hr IV.CONT .Q20H [facility] [place] Rx#: [id number] Diprivan 1000 mg/100 ml Inj 1, 200 / 200 300 / 300 100 / 100 000 mg In 100 ml @ 5 MCG/KG/MIN 3.018 mls/hr IV.CONT TITRATE PRN Rx#:[id number] LR 1000 mL Inj 1,000 ML @ 100 2000 / 2000 1000 / 1000 1000 / 1000 mls/hr IV.SIG .Q10H [facility] [place] Rx#: [id number] Tube Feeding 32 / 32 358 / 358 Tube Irrigant 90 / 90 400 / 400 Other 1250 / 1250 Output: Urine 1250 / 1250 Estimated Blood Loss 100 / 100 Urine Amount (Catheter) 1200 / 1200 Indwelling Urethral Catheter 1200 / 1200 Gastric Drainage 50 / 50 50 / 50 Oral Orogastric Tube 50 / 50 50 / 50 Wound Drainage # 1 Anterior Neck Anatoly Other: Date of Last Bowel Movement 10/29/17 10/29/17 # Bowel Movements 0 0 Narrative: GENERAL: Lethargic but sedated w/propofol 30 mcg/kg/min infusing for sedation. He also has fentanyl 100 mcg/hr infusing for pain control. He is intubated and on PRVC A/C settings. He is not in any apparent distress. HEENT: Abrasions & ecchymosis noted to face. Pin sites for Halo w/o any drainage , erythema or streaking noted. Pupils 2 mm brisk bilaterally. Orally intubated. OGT. NECK: Halo in place. Dry & intact anterior neck surgical incision dressing. No JVD. Trachea midline. MUSCULOSKELETAL: Spontaneously lifted both UEs off bed when he awoke to voice. No evident deformity or clubbing. 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 NEUROLOGICAL: Lethargic but sedated w/propofol. Brief eye opening to voice. Nonverbal, intubated. Did not follow any commands but spontaneously seen lifting BUE off bed when he woke up to voice. Moved upper extremities to local noxious stimulation & left upper to left side central noxious stimulation. No lower extremity response to local or central noxious stimulation. - Urinary Catheter Management Indwelling Urethral Catheter Cath placed during this visit: no Reason for continuing: Hourly intake/output <Jacek Aragon E - Last Filed: 11/01/17 14:10> Vital signs: Vital Signs 11/05/17 00:00 11/05/17 00:08 11/05/17 04:00 Temperature 99.9 F H 100.1 F H Pulse Rate 101 H 112 H Respiratory Rate 24 24 24 Blood Pressure 110/51 L 129/52 L Pulse Oximetry 98 98 99 11/05/17 04:16 11/05/17 08:00 11/05/17 08:16 Temperature 100.1 F H Pulse Rate 110 H Respiratory Rate 24 24 24 Blood Pressure 120/50 L Pulse Oximetry 99 99 98 11/05/17 08:49 11/05/17 11:30 11/05/17 12:00 Temperature 100.1 F H 101.1 F H Pulse Rate 111 H 119 H Respiratory Rate 24 24 30 H Blood Pressure 116/85 117/51 L Pulse Oximetry 99 95 95 11/05/17 16:00 11/05/17 17:08 11/05/17 21:02 Temperature 100.5 F H Pulse Rate 118 H Respiratory Rate 16 23 16 Blood Pressure 108/58 L Pulse Oximetry 97 100 Intake & Output 11/05/17 11/05/17 11/06/17 06:59 18:59 06:59 Intake Total 2194 / 2194 1578 / 1578 100 / 100 Output Total 1500 / 1500 1200 / 1200 Balance 694 / 694 378 / 378 100 / 100 Weight 122.7 kg Intake: IV 1850 / 1850 1250 / 1250 100 / 100 Neosynephrine Inj 40 MG In D5W 100 / 100 Inj 496 ML @ 40 MCG/MIN 30 mls/ hr IV.CONT TITRATE PRN Rx#: [id number] Diprivan 1000 mg/100 ml Inj 1, 400 / 400 200 / 200 100 / 100 000 mg In 100 ml @ 5 MCG/KG/MIN 3.018 mls/hr IV.CONT TITRATE PRN Rx#:[id number] LR 1000 mL Inj 1,000 ML @ 75 1000 / 1000 300 / 300 mls/hr IV.SIG .[id number] [facility] [place] Rx#: [id number] Zosyn 4.5 GM Premix 4.5 gm In 200 / 200 200 / 200 100 ml @ 200 mls/hr IV.SIG Q6H [facility] Rx#:[id number] KCl 40 mEq Premix Inj 40 meq In 200 / 200 100 ml @ 25 mls/hr IV.SIG Q2H PRN Rx#:[id number] fentaNYL 10 mcg/mL Premix Drip 250 / 250 250 / 250 2,500 mcg In 250 ml @ 50 MCG/HR 5 mls/hr IV.SIG TITRATE PRN Rx #:[id number] Tube Feeding 284 / 284 268 / 268 Tube Irrigant 60 / 60 Water Bolus Amount 60 / 60 Output: Stool 0 / 0 Urine Amount (Catheter) 1500 / 1500 1200 / 1200 Indwelling Urethral Catheter 1500 / 1500 1200 / 1200 Gastric Drainage 0 / 0 0 / 0 Oral Orogastric Tube 0 / 0 0 / 0 Other: Date of Last Bowel Movement 11/02/17 11/05/17 # Bowel Movements 0 1 - Urinary Catheter Management Indwelling Urethral Catheter Cath placed during this visit: no <Jori Tesfaye - Last Filed: 11/05/17 21:11> Assessment and Plan - Plan Impression: (1) Contusion of cervical cord (2) Dislocation of cervical facet joint The patient is lethargic today but sedated. He spontaneously moved BUE when awoken & then to noxious stimulation but no response w/BLE. Past 24 hrs: 100.7 T max. Tachycardia. PEGGY drain output of 20 mL for the past 24 hrs as of shift change this morning. Reviewed labs for today. Sodium 143. eGFR >89. MRI cervical spine demonstrated post-fusion changes at C5-C7 levels w /reduction of the C6 on C7 subluxation; persistent increased C7 level cord signal; persistent epidural space fluid at C6-C7 level w/o change, effusion vs haemorrhage; degenerative changes. POD #1 () s/p: 1. Intraoperative reduction of C6-7 left facet dislocation with intraoperative fluoroscopy C arm imaging 2. C5-6 and C6-7 anterior cervical discectomy, partial, greater than 50% C6 corpectomy for spinal cord decompression. 3. C5-6 and C6-7 anterior interbody fusion, allograft bone 4. C5-C7 anterior cervical instrumentation 5. Halo placement Plan: Primary management per Trauma Service. Neuro checks. Monitor PEGGY drain output. Hold pharmacologic DVT prophylaxis. Mechanical DVT prophylaxis. Stress ulcer prophylaxis. Plan to remove PEGGY drain in AM. Okay to start pharmacologic DVT prophylaxis. <Jacek Aragon - Last Filed: 11/01/17 14:10> - Assessment (1) Contusion of cervical cord Code(s): S14.109A - Unspecified injury at unspecified level of cervical spinal cord, initial encounter Status: Acute Qualifiers: Encounter type: initial encounter Qualified Code(s): S14.109A - Unspecified injury at unspecified level of cervical spinal cord, initial encounter (2) Elevated troponin Code(s): R74.8 - Abnormal levels of other serum enzymes Status: Acute - Attending Attestation The exam, history, and the medical decision-making described in the above note were completed with the assistance of the mid-level provider. I reviewed and agree with the findings presented. I attest that I had a tyhn-[id number] encounter with the patient on the same day, and personally performed and documented my assessment and findings in the medical record. Remains intubated, sedated on propofol. Moderate flexion upper extremities. No lower extremity motor movement noted at this time. Continue ventilator and sedation wean Continue therapy <Jori Tesfaye - Last Filed: 11/05/17 21:11>
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
[2017-11-01] MEDS: fentaNYL 10 mcg/mL Premix Drip 2,500 MCG/250 ML BAG IV.SIG PRN (20:33)
[2017-11-01] MEDS: Enoxaparin Inj 30 MG/0.3 ML Syringe SQ SCH (21:36)
[2017-11-02] MEDS: Oral Hygiene Kit OROPHARYNG SCH ×5 (02:23→23:54)
[2017-11-02 04:25] LABS: Baso % (Auto) 0.3 % (0.0-2.0); Eos % (Auto) 0.1 % (0.0-4.0); Hematocrit 29.3 % (39.0-51.0); Hemoglobin 9.8 gm/dL (13.0-17.0); Lymph # (Auto) 0.8 th/mm3 (1.0-4.8); Lymph % (Auto) 8.5 % (9.0-44.0); Mean Corpuscular HGB Conc 33.2 % (32.0-36.0); Mean Corpuscular Hemoglobin 30.7 pg (27.0-34.0); Mean Corpuscular Volume 92.2 fL (80.0-100.0); Mean Platelet Volume 9.5 fL (7.0-11.0); Mono # (Auto) 0.6 th/mm3 (0.0-0.9); Mono % (Auto) 7.2 % (0.0-8.0); Neut # (Auto) 7.4 th/mm3 (1.8-7.7); Neut % (Auto) 83.9 % (16.0-70.0); Platelet Count 168 th/mm3 (150-450); Red Blood Count 3.18 mil/mm3 (4.50-5.90); Red Cell Distribution Width 14.8 % (11.6-17.2); White Blood Count 8.8 th/mm3 (4.0-11.0)
[2017-11-02 04:57] LABS: Calcium 8.9 mg/dL (8.5-10.1); Carbon Dioxide 30.3 meq/L (21.0-32.0); Potassium 4.6 meq/L (3.5-5.1)
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
[2017-11-02 05:37] LABS: ABG Base Excess 4.2 mmol/L (-2-2); ABG PCO2 60 mmHg (38-42); ABG PO2 85 mmHg (61-120)
[2017-11-02] MEDS: Chlorhexidine 0.12% Oral Kit 15 ML UDC OROPHARYNG SCH ×2 (08:08→21:13)
[2017-11-02] MEDS: Propofol 1000 mg/100 ml Inj 1,000 MG/100 ML BOTTLE IV.CONT PRN ×3 (09:21→21:12)
[2017-11-02] MEDS: Senna/Docusate Sodium 8.6/50 MG Tablet PO SCH ×2 (09:22→21:14)
[2017-11-02] MEDS: Enoxaparin Inj 30 MG/0.3 ML Syringe SQ SCH ×2 (09:22→21:13)
[2017-11-02] MEDS: Famotidine 20 MG Tablet PO SCH ×2 (09:22→21:14)
[2017-11-02 09:34] LABS: Lymphocytes 8 % (9-44); Monocytes 3 % (0-8); Tallied Nucleated RBC 2 (0-0)
[2017-11-02 09:35] LABS: Platelet Estimate Normal (Normal); Platelet Morphology Normal (Normal)
[2017-11-02] MEDS ORDERED: Vancomycin Inj 1,000 MG in Sodium Chlor 0.9% Inj 250 ML IV.SIG SCH (10:00)
[2017-11-02] MEDS ORDERED: Vancomycin Consult Pharmacy 1 EACH OTHER SCH (10:00)
[2017-11-02 10:17] LABS: ABG Base Excess 4.6 mmol/L (-2-2); ABG PCO2 69 mmHg (38-42); ABG PO2 81 mmHg (61-120)
[2017-11-02] MEDS ORDERED: Vancomycin Inj 2,000 MG in Sodium Chlor 0.9% Inj 500 ML IV.SIG ONE (11:00)
[2017-11-02] MEDS: Piperacil/Tazo 4.5 GM Premix 4.5 GM/100 ML BAG IV.SIG SCH ×3 (11:40→22:23)
[2017-11-02] MEDS ORDERED: Albumin Human 5% Inj 500 ML IV.SIG ONE ×2 (12:00→14:00)
[2017-11-02 13:17] LABS: ABG Base Excess 4.2 mmol/L (-2-2); ABG PCO2 68 mmHg (38-42); ABG PO2 91 mmHg (61-120)
--- NOTE | 2017-11-02 16:41 | P.PNNS ---
Subjective Interval history: 10/30: The patient went emergently for an intraoperative reduction of a C6-7 left facet dislocation followed by a C5-6 and C6-7 anterior cervical discectomy with interbody fusion and instrumentation. He was also placed in a Halo while in surgery. Post-operatively the patient returned to the ISC unit for further care and management. 10/31: Initially went to see patient this morning and he was in MRI. Therefore the patient was seen after he returned. He is comatose but does have propofol infusing for sedation. He had no response to any stimulation upon evaluation. The Halo is in place and the pin sites look good. 11/01: This afternoon the patient is lethargic when seen. He continues to have propofol infusing for sedation and remains intubated and mechanically ventilated. He did spontaneously lift both upper extremities off the bed when this practitioner spoke to him. He did not follow any commands but did move the upper extremities to noxious stimulation but not the lower. 11/02: The patient is comatose when seen but does have propofol infusing for sedation at a higher dose than yesterday. He is intubated and mechanically ventilated. He had no response to any stimulation. <Jacek Aragon E - Last Filed: 11/02/17 16:47> Physical Exam Vital signs: Vital Signs 11/01/17 18:00 11/01/17 20:00 11/01/17 20:32 Temperature 99.4 F Pulse Rate 128 H 130 H 129 H Respiratory Rate 25 H 27 H Blood Pressure 119/66 Pulse Oximetry 92 L 92 L 11/01/17 22:00 11/02/17 00:00 11/02/17 00:59 Temperature 99.6 F Pulse Rate 124 H 126 H Respiratory Rate 26 H 28 H Blood Pressure 127/72 Pulse Oximetry 92 L 95 11/02/17 02:00 11/02/17 03:49 11/02/17 04:00 Temperature 102.1 F H Pulse Rate 126 H 132 H Respiratory Rate 26 H 35 H Blood Pressure 143/78 H Pulse Oximetry 94 L 92 L 11/02/17 06:00 11/02/17 08:17 11/02/17 10:54 Temperature Pulse Rate 132 H Respiratory Rate 22 24 Blood Pressure Pulse Oximetry 95 93 L 11/02/17 15:35 Temperature Pulse Rate 110 H Respiratory Rate 24 Blood Pressure Pulse Oximetry 99 Intake & Output 11/01/17 11/02/17 11/02/17 18:59 06:59 18:59 Intake Total 2223 / 2223 1888 / 1888 3820 / 3820 Output Total 1105 / 1105 650 / 650 Balance 1118 / 1118 1238 / 1238 3820 / 3820 Weight 113.8 kg Intake: IV 1450 / 1450 1200 / 1200 3820 / 3820 Diprivan 1000 mg/100 ml Inj 1, 200 / 200 200 / 200 200 / 200 000 mg In 100 ml @ 5 MCG/KG/MIN 3.018 mls/hr IV.CONT TITRATE PRN Rx#:[id number] Alburx 5% Inj 500 ML @ 250 mls/ 1000 / 1000 hr IV.SIG ONCE ONE Rx#:[id number] LR 1000 mL Inj 1,000 ML @ Wide 1000 / 1000 1000 / 1000 2000 / 2000 Open IV.SIG BOLUS ONE Rx#: [id number] Zosyn 4.5 GM Premix 4.5 gm In 100 / 100 100 ml @ 200 mls/hr IV.SIG Q6H [facility] Rx#:[id number] Vancomycin Inj 2,000 MG In NS 520 / 520 Inj 500 ML @ 250 mls/hr IV.SIG ONCE ONE Rx#:[id number] fentaNYL 10 mcg/mL Premix Drip 250 / 250 2,500 mcg In 250 ml @ 50 MCG/HR 5 mls/hr IV.SIG TITRATE PRN Rx #:[id number] Tube Feeding 653 / 653 488 / 488 Tube Irrigant 120 / 120 Water Bolus Amount 200 / 200 Output: Urine 650 / 650 Stool 0 / 0 Urine Amount (Catheter) 1100 / 1100 Indwelling Urethral Catheter 1100 / 1100 Wound Drainage 5 / 5 # 1 Anterior Neck Anatoly 5 / 5 Other: Date of Last Bowel Movement 10/29/17 10/29/17 # Bowel Movements 0 Narrative: GENERAL: Comatose but sedated w/propofol 40 mcg/kg/min infusing for sedation which is increased from when seen yesterday. He also has fentanyl 200 mcg/hr infusing for pain control. He is intubated and on PRVC A/C settings. He is not in any apparent distress. HEENT: Abrasions & ecchymosis noted to face. Pin sites for Halo w/o any drainage , erythema or streaking noted. Pupils 2 mm nonreactive. Orally intubated. OGT. NECK: Halo in place. Dry & intact anterior neck surgical incision dressing w/ shadowing noted along edge, PEGGY drain to bulb suction w/scant serosanguinous drainage in it. No JVD. Trachea midline. MUSCULOSKELETAL: No response to any stimulation. No evident deformity or clubbing. 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 NEUROLOGICAL: Comatose but sedated w/propofol at a high dose than yesterday. No eye opening to any stimulation. Pupils 2 mm nonreactive. No corneal reflex bilaterally. Nonverbal, intubated. No cough reflex to suctioning. Did not follow any commands. No extremity response to local or central noxious stimulation. - Urinary Catheter Management Indwelling Urethral Catheter Cath placed during this visit: no Reason for continuing: Hourly intake/output <Jacek Aragon E - Last Filed: 11/02/17 16:47> Vital signs: Vital Signs 11/05/17 00:00 11/05/17 00:08 11/05/17 04:00 Temperature 99.9 F H 100.1 F H Pulse Rate 101 H 112 H Respiratory Rate 24 24 24 Blood Pressure 110/51 L 129/52 L Pulse Oximetry 98 98 99 11/05/17 04:16 11/05/17 08:00 11/05/17 08:16 Temperature 100.1 F H Pulse Rate 110 H Respiratory Rate 24 24 24 Blood Pressure 120/50 L Pulse Oximetry 99 99 98 11/05/17 08:49 11/05/17 11:30 11/05/17 12:00 Temperature 100.1 F H 101.1 F H Pulse Rate 111 H 119 H Respiratory Rate 24 24 30 H Blood Pressure 116/85 117/51 L Pulse Oximetry 99 95 95 11/05/17 16:00 11/05/17 17:08 11/05/17 21:02 Temperature 100.5 F H Pulse Rate 118 H Respiratory Rate 16 23 16 Blood Pressure 108/58 L Pulse Oximetry 97 100 Intake & Output 11/05/17 11/05/17 11/06/17 06:59 18:59 06:59 Intake Total 2194 / 2194 1578 / 1578 100 / 100 Output Total 1500 / 1500 1200 / 1200 Balance 694 / 694 378 / 378 100 / 100 Weight 122.7 kg Intake: IV 1850 / 1850 1250 / 1250 100 / 100 Neosynephrine Inj 40 MG In D5W 100 / 100 Inj 496 ML @ 40 MCG/MIN 30 mls/ hr IV.CONT TITRATE PRN Rx#: [id number] Diprivan 1000 mg/100 ml Inj 1, 400 / 400 200 / 200 100 / 100 000 mg In 100 ml @ 5 MCG/KG/MIN 3.018 mls/hr IV.CONT TITRATE PRN Rx#:[id number] LR 1000 mL Inj 1,000 ML @ 75 1000 / 1000 300 / 300 mls/hr IV.SIG .[id number] [facility] Rx#: [id number] Zosyn 4.5 GM Premix 4.5 gm In 200 / 200 200 / 200 100 ml @ 200 mls/hr IV.SIG Q6H [facility] Rx#:[id number] KCl 40 mEq Premix Inj 40 meq In 200 / 200 100 ml @ 25 mls/hr IV.SIG Q2H [facility] Rx#:[id number] fentaNYL 10 mcg/mL Premix Drip 250 / 250 250 / 250 2,500 mcg In 250 ml @ 50 MCG/HR 5 mls/hr IV.SIG TITRATE PRN Rx #:[id number] Tube Feeding 284 / 284 268 / 268 Tube Irrigant 60 / 60 Water Bolus Amount 60 / 60 Output: Stool 0 / 0 Urine Amount (Catheter) 1500 / 1500 1200 / 1200 Indwelling Urethral Catheter 1500 / 1500 1200 / 1200 Gastric Drainage 0 / 0 0 / 0 Oral Orogastric Tube 0 / 0 0 / 0 Other: Date of Last Bowel Movement 11/02/17 11/05/17 # Bowel Movements 0 1 - Urinary Catheter Management Indwelling Urethral Catheter Cath placed during this visit: no <Jori Tesfaye - Last Filed: 11/05/17 21:11> Assessment and Plan - Plan Impression: (1) Contusion of cervical cord (2) Dislocation of cervical facet joint The patient is comatose today but sedated, which has been increased since seen yesterday. He had no response to any stimulation. Past 24 hrs: 102.1 T max. Tachycardia & tachypnea. PEGGY drain output of 5 mL for the past 24 hrs as of shift change this morning. Reviewed labs for today. Sodium 146. eGFR 84. Resolution of leukocytosis and thrombocytopenia but mild drop in haemoglobin level since . MRI cervical spine demonstrated post-fusion changes at C5-C7 levels w /reduction of the C6 on C7 subluxation; persistent increased C7 level cord signal; persistent epidural space fluid at C6-C7 level w/o change, effusion vs haemorrhage; degenerative changes. POD #2 () s/p: 1. Intraoperative reduction of C6-7 left facet dislocation with intraoperative fluoroscopy C arm imaging 2. C5-6 and C6-7 anterior cervical discectomy, partial, greater than 50% C6 corpectomy for spinal cord decompression. 3. C5-6 and C6-7 anterior interbody fusion, allograft bone 4. C5-C7 anterior cervical instrumentation 5. Halo placement Plan: Primary management per Trauma Service. Neuro checks. Okay for pharmacologic DVT prophylaxis. Mechanical DVT prophylaxis. Stress ulcer prophylaxis. D/c PEGGY drain to anterior neck surgical incision. <Jacek Aragon - Last Filed: 11/02/17 16:47> - Assessment (1) Contusion of cervical cord Code(s): S14.109A - Unspecified injury at unspecified level of cervical spinal cord, initial encounter Status: Acute Qualifiers: Encounter type: initial encounter Qualified Code(s): S14.109A - Unspecified injury at unspecified level of cervical spinal cord, initial encounter (2) Elevated troponin Code(s): R74.8 - Abnormal levels of other serum enzymes Status: Acute - Attending Attestation The exam, history, and the medical decision-making described in the above note were completed with the assistance of the mid-level provider. I reviewed and agree with the findings presented. I attest that I had a [id number] encounter with the patient on the same day, and personally performed and documented my assessment and findings in the medical record. No change in neurologic exam over the past couple of days. Discontinue drain Continue halo and therapy <Jori Tesfaye - Last Filed: 11/05/17 21:11>
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
[2017-11-02] MEDS: fentaNYL 10 mcg/mL Premix Drip 2,500 MCG/250 ML BAG IV.SIG PRN (23:56)
[2017-11-03] MEDS: Propofol 1000 mg/100 ml Inj 1,000 MG/100 ML BOTTLE IV.CONT PRN ×4 (02:07→21:29)
[2017-11-03] MEDS: Oral Hygiene Kit OROPHARYNG SCH ×4 (03:49→23:49)
[2017-11-03 03:59] LABS: Baso % (Auto) 0.2 % (0.0-2.0); Eos # (Auto) 0.1 th/mm3 (0.0-0.4); Eos % (Auto) 1.3 % (0.0-4.0); Hematocrit 24.5 % (39.0-51.0); Hemoglobin 8.2 gm/dL (13.0-17.0); Lymph # (Auto) 0.8 th/mm3 (1.0-4.8); Lymph % (Auto) 8.5 % (9.0-44.0); Mean Corpuscular HGB Conc 33.4 % (32.0-36.0); Mean Corpuscular Hemoglobin 31.1 pg (27.0-34.0); Mean Corpuscular Volume 92.9 fL (80.0-100.0); Mean Platelet Volume 9.4 fL (7.0-11.0); Mono # (Auto) 0.4 th/mm3 (0.0-0.9); Mono % (Auto) 4.1 % (0.0-8.0); Neut # (Auto) 8.5 th/mm3 (1.8-7.7); Neut % (Auto) 85.9 % (16.0-70.0); Platelet Count 179 th/mm3 (150-450); Red Blood Count 2.63 mil/mm3 (4.50-5.90); Red Cell Distribution Width 14.9 % (11.6-17.2); White Blood Count 9.8 th/mm3 (4.0-11.0)
[2017-11-03 04:14] LABS: Carbon Dioxide 32.3 meq/L (21.0-32.0); Potassium 4.4 meq/L (3.5-5.1)
[2017-11-03] MEDS: Piperacil/Tazo 4.5 GM Premix 4.5 GM/100 ML BAG IV.SIG SCH ×4 (04:28→22:38)
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
[2017-11-03 05:36] LABS: Eosinophils 4 % (0-4); Lymphocytes 11 % (9-44); Metamyelocytes 10 % (0-1); Monocytes 3 % (0-8)
[2017-11-03 05:37] LABS: Dohle Bodies Present; Rouleaux Present
[2017-11-03 05:38] LABS: Platelet Estimate Normal (Normal); Platelet Morphology Normal (Normal)
[2017-11-03 05:41] LABS: ABG PCO2 54 mmHg (38-42); ABG PO2 80 mmHg (61-120)
[2017-11-03] MEDS: Senna/Docusate Sodium 8.6/50 MG Tablet PO SCH ×2 (08:48→20:14)
[2017-11-03] MEDS: Famotidine 20 MG Tablet PO SCH ×2 (08:48→20:14)
[2017-11-03] MEDS: Enoxaparin Inj 30 MG/0.3 ML Syringe SQ SCH ×2 (08:49→20:14)
[2017-11-03] MEDS: Chlorhexidine 0.12% Oral Kit 15 ML UDC OROPHARYNG SCH ×2 (08:49→20:14)
[2017-11-03] MEDS ORDERED: Albumin Human 5% Inj 500 ML IV.SIG ONE (09:28)
[2017-11-03] MEDS ORDERED: Vasopressin Inj 40 UNIT in Dextrose 5% in Water Inj 98 ML IV.CONT SCH ×2 (10:00)
[2017-11-03] MEDS: Vancomycin Inj 2,000 MG in Sodium Chlor 0.9% Inj 500 ML IV.SIG SCH (10:02)
--- NOTE | 2017-11-03 11:11 | P.PNNS ---
Subjective Interval history: 10/30: The patient went emergently for an intraoperative reduction of a C6-7 left facet dislocation followed by a C5-6 and C6-7 anterior cervical discectomy with interbody fusion and instrumentation. He was also placed in a Halo while in surgery. Post-operatively the patient returned to the ISC unit for further care and management. 10/31: Initially went to see patient this morning and he was in MRI. Therefore the patient was seen after he returned. He is comatose but does have propofol infusing for sedation. He had no response to any stimulation upon evaluation. The Halo is in place and the pin sites look good. 11/01: This afternoon the patient is lethargic when seen. He continues to have propofol infusing for sedation and remains intubated and mechanically ventilated. He did spontaneously lift both upper extremities off the bed when this practitioner spoke to him. He did not follow any commands but did move the upper extremities to noxious stimulation but not the lower. 11/02: The patient is comatose when seen but does have propofol infusing for sedation at a higher dose than yesterday. He is intubated and mechanically ventilated. He had no response to any stimulation. 11/03: When seen this morning the patient is lethargic although his eyes are partially open. He is sedated with propofol. Nursing had just finished turning him when seen. She did report that he spontaneously moved the upper extremities. Upon evaluation the patient did move the upper extremities to noxious stimulation but not the lower. He did not follow any commands. The Halo is intact and there are no signs of infection to the pin sites. Nursing did say that Trauma does not want a sedation vacation at this time. The patient is on two vasopressors for blood pressure support. <Jacek Aragon E - Last Filed: 11/03/17 11:16> Physical Exam Vital signs: Vital Signs 11/02/17 12:00 11/02/17 14:00 11/02/17 15:35 Temperature 101.6 F H Pulse Rate 130 H 117 H 110 H Respiratory Rate 22 24 Blood Pressure 107/60 Pulse Oximetry 93 L 97 99 11/02/17 16:00 11/02/17 18:00 11/02/17 20:00 Temperature 98.9 F 98.3 F Pulse Rate 105 H 100 H 101 H Respiratory Rate 24 24 Blood Pressure 92/58 L 92/52 L Pulse Oximetry 99 100 07/14/18 20:27 11/02/17 21:00 11/02/17 22:00 Temperature Pulse Rate 105 H 112 H Respiratory Rate 24 Blood Pressure Pulse Oximetry 100 99 11/03/17 00:00 11/03/17 00:13 11/03/17 02:00 Temperature 98.1 F Pulse Rate 108 H 104 H 107 H Respiratory Rate 24 24 Blood Pressure 107/55 L Pulse Oximetry 97 98 11/03/17 04:00 11/03/17 04:38 11/03/17 04:45 Temperature 99.4 F Pulse Rate 109 H 108 H Respiratory Rate 25 H 24 24 Blood Pressure 112/70 Pulse Oximetry 99 98 11/03/17 06:00 11/03/17 08:36 Temperature Pulse Rate 109 H Respiratory Rate 24 Blood Pressure Pulse Oximetry 96 Intake & Output 11/02/17 11/03/17 11/03/17 18:59 06:59 18:59 Intake Total 3940 / 3940 3120 / 3120 450 / 450 Output Total 900 / 900 1300 / 1300 Balance 3040 / 3040 1820 / 1820 450 / 450 Weight 113.9 kg Intake: IV 3820 / 3820 3000 / 3000 450 / 450 Diprivan 1000 mg/100 ml Inj 1, 200 / 200 200 / 200 100 / 100 000 mg In 100 ml @ 5 MCG/KG/MIN 3.018 mls/hr IV.CONT TITRATE PRN Rx#:[id number] Alburx 5% Inj 500 ML @ 250 mls/ 1000 / 1000 hr IV.SIG ONCE ONE Rx#:[id number] LR 1000 mL Inj 1,000 ML @ 75 2000 / 2000 2000 / 2000 mls/hr IV.SIG .[id number] [facility] Rx#: [id number] Levophed-Dextrose 4 mg/250 ml 250 / 250 250 / 250 Drip 4 mg In 250 ml @ 2 MCG/MIN 7.5 mls/hr IV.SIG TITRATE PRN Rx#:[id number] Zosyn 4.5 GM Premix 4.5 gm In 100 / 100 300 / 300 100 / 100 100 ml @ 200 mls/hr IV.SIG Q6H [facility] Rx#:[id number] Vancomycin Inj 2,000 MG In NS 520 / 520 Inj 500 ML @ 250 mls/hr IV.SIG ONCE ONE Rx#:[id number] fentaNYL 10 mcg/mL Premix Drip 250 / 250 2,500 mcg In 250 ml @ 50 MCG/HR 5 mls/hr IV.SIG TITRATE PRN Rx #:[id number] Tube Feeding 120 / 120 0 / 0 Tube Irrigant 120 / 120 Output: Urine 1300 / 1300 Urine Amount (Catheter) 900 / 900 Indwelling Urethral Catheter 900 / 900 Other: Date of Last Bowel Movement 11/02/17 11/02/17 # Bowel Movements 1 0 Narrative: GENERAL: Lethargic, eyes partially opened. Sedated w/propofol 40 mcg/kg/min infusing for sedation. He also has fentanyl 200 mcg/hr infusing for pain control. He is intubated and on PRVC A/C settings. He is not in any apparent distress. On 2 vasopressors for blood pressure support. HEENT: Abrasions & ecchymosis noted to face. Pin sites for Halo w/o any drainage , erythema or streaking noted. Pupils 2 mm reactive bilaterally. Orally intubated. OGT. NECK: Halo in place. Dry & intact anterior neck surgical incision dressing w/ shadowing noted along edge. No JVD. Trachea midline. MUSCULOSKELETAL: Moved BUE to noxious stimulation. No evident deformity or clubbing. 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 NEUROLOGICAL: Lethargic but sedated w/propofol. Eyes partially open when seen but opened more to voice. Pupils 2 mm reactive bilaterally. Nonverbal, intubated. Did not follow any commands. Moved upper extremities to central noxious stimulation but not local. No lower extremity response to local or central noxious stimulation. - Urinary Catheter Management Indwelling Urethral Catheter Cath placed during this visit: no Reason for continuing: Hourly intake/output <Jacek Aragon E - Last Filed: 11/03/17 11:16> Vital signs: Vital Signs 11/02/17 20:00 11/02/17 20:27 11/02/17 21:00 Temperature 98.3 F Pulse Rate 101 H 105 H Respiratory Rate 24 24 Blood Pressure 92/52 L Pulse Oximetry 100 100 99 11/02/17 22:00 11/03/17 00:00 11/03/17 00:13 Temperature 98.1 F Pulse Rate 112 H 108 H 104 H Respiratory Rate 24 24 Blood Pressure 107/55 L Pulse Oximetry 97 98 11/03/17 02:00 11/03/17 04:00 11/03/17 04:38 Temperature 99.4 F Pulse Rate 107 H 109 H Respiratory Rate 25 H 24 Blood Pressure 112/70 Pulse Oximetry 99 98 11/03/17 04:45 11/03/17 06:00 11/03/17 08:00 Temperature Pulse Rate 108 H 109 H 106 H Respiratory Rate 24 Blood Pressure Pulse Oximetry 96 11/03/17 08:36 11/03/17 10:00 11/03/17 13:35 Temperature Pulse Rate 110 H Respiratory Rate 24 24 Blood Pressure Pulse Oximetry 96 100 11/03/17 16:10 11/03/17 16:46 11/03/17 16:48 Temperature 100.3 F H 100.3 F H Pulse Rate 110 H 154 H Respiratory Rate 25 H 27 H 27 H Blood Pressure 120/67 133/61 Pulse Oximetry 100 97 97 11/03/17 16:50 Temperature 100.4 F H Pulse Rate 153 H Respiratory Rate 26 H Blood Pressure 133/63 Pulse Oximetry Intake & Output 11/03/17 11/03/17 11/04/17 06:59 18:59 06:59 Intake Total 3120 / 3120 3040 / 3040 Output Total 1300 / 1300 Balance 1820 / 1820 3040 / 3040 Weight 113.9 kg Intake: IV 3000 / 3000 2940 / 2940 LR 1000 mL Inj 1,000 ML @ 999 1000 / 1000 mls/hr IV.CONT .Q1H1M [facility] Rx#: [id number] Diprivan 1000 mg/100 ml Inj 1, 200 / 200 200 / 200 000 mg In 100 ml @ 5 MCG/KG/MIN 3.018 mls/hr IV.CONT TITRATE PRN Rx#:[id number] Pitressin Inj 40 UNIT In D5W 20 / 20 Inj 98 ML @ 0.04 UNITS/MIN 6 mls/hr IV.CONT CONT ITA Rx#: [id number] Alburx 5% Inj 500 ML @ 250 mls/ 500 / 500 hr IV.SIG ONCE ONE Rx#:[id number] LR 1000 mL Inj 1,000 ML @ 75 2000 / 2000 mls/hr IV.SIG .[id number] [facility] Rx#: [id number] Levophed-Dextrose 4 mg/250 ml 250 / 250 500 / 500 Drip 4 mg In 250 ml @ 2 MCG/MIN 7.5 mls/hr IV.SIG TITRATE PRN Rx#:[id number] Zosyn 4.5 GM Premix 4.5 gm In 300 / 300 200 / 200 100 ml @ 200 mls/hr IV.SIG Q6H [facility] Rx#:[id number] Vancomycin Inj 2,000 MG In NS 520 / 520 Inj 500 ML @ 250 mls/hr IV.SIG Q24H [facility] Rx#:[id number] fentaNYL 10 mcg/mL Premix Drip 250 / 250 2,500 mcg In 250 ml @ 50 MCG/HR 5 mls/hr IV.SIG TITRATE PRN Rx #:[id number] Tube Feeding 0 / 0 Tube Irrigant 120 / 120 Intake (Blood Product) Amt 100 / 100 Rbc As-3 Leukoreduced Unit 100 / 100 [id number] Output: Urine 1300 / 1300 Other: Date of Last Bowel Movement 11/02/17 11/02/17 # Bowel Movements 0 - Urinary Catheter Management Indwelling Urethral Catheter Cath placed during this visit: no <Jori Tesfaye - Last Filed: 11/03/17 19:43> Assessment and Plan - Plan Impression: (1) Contusion of cervical cord (2) Dislocation of cervical facet joint The patient is lethargic but sedated when seen. He did move the upper extremities to noxious stimulation but not the lower. He is requiring vasopressor support for his blood pressure. Past 24 hrs: 101.6 T max. Tachycardia & tachypnea. SBP down into 90s yesterday. Reviewed labs for today. Drop in haemoglobin level. Sodium 148. eGFR 79. MRI cervical spine demonstrated post-fusion changes at C5-C7 levels w /reduction of the C6 on C7 subluxation; persistent increased C7 level cord signal; persistent epidural space fluid at C6-C7 level w/o change, effusion vs haemorrhage; degenerative changes. POD #3 () s/p: 1. Intraoperative reduction of C6-7 left facet dislocation with intraoperative fluoroscopy C arm imaging 2. C5-6 and C6-7 anterior cervical discectomy, partial, greater than 50% C6 corpectomy for spinal cord decompression. 3. C5-6 and C6-7 anterior interbody fusion, allograft bone 4. C5-C7 anterior cervical instrumentation 5. Halo placement PEGGY drain d/c'd . Plan: Primary management per Trauma Service. Neuro checks. Okay for pharmacologic DVT prophylaxis. Mechanical DVT prophylaxis. Stress ulcer prophylaxis. <Jacek Aragon - Last Filed: 11/03/17 11:16> - Attending Attestation The exam, history, and the medical decision-making described in the above note were completed with the assistance of the mid-level provider. I reviewed and agree with the findings presented. I attest that I had a [id number] encounter with the patient on the same day, and personally performed and documented my assessment and findings in the medical record. Patient is intubated and sedated. Positive tube feedings. Halo in place Neck dressing dry He has had some dynamic instability today. Positive liver laceration per nursing staff report. Sedation vacations held per general surgery. Continue supportive care Unable to obtain adequate exam until decreased sedation. Postoperative MRI satisfactory regarding decompression. <Jori Tesfaye B - Last Filed: 11/03/17 19:43>
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
[2017-11-03] MEDS ORDERED: Sodium Chlor 0.9% Inj 250 ML IV.SIG SCH (14:00)
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
[2017-11-03] MEDS ORDERED: Midazolam Inj 5 MG/ML 1 ML Vial ONE (16:54)
[2017-11-03] MEDS ORDERED: Metoprolol Inj 5 MG/5 ML Vial ONE (16:58)
[2017-11-03] MEDS ORDERED: Adenosine Inj 6 MG/2 ML Syringe IV.PUSH ONE (17:03)
[2017-11-03] MEDS ORDERED: Metoprolol Inj 5 MG/5 ML Vial IV.PUSH ONE (17:30)
--- NOTE | 2017-11-03 17:40 | P.PNCC ---
Critical Care Event Note Code activated: No Narrative: This case had a high probability of a clinically significant, sudden, or life threatening deterioration of this patient's condition which required my full and direct attention, intervention and personal management. Called by RN for HR 150/min with spikes to 170/min-Pre Certification Specialist ordered B ankit with reduction to 140 range. Likely exacerbation of BCI-RN contacted cardiology doubt transfusion reaction troponin electrolytes BP remained stable dc levophed-will use vipin if needed 2 U PRBC prognosis remains guarded Critical care time: less than 30 mins
[2017-11-03] MEDS: Phenylephrine Inj 40 MG in Dextrose 5% in Water Inj 496 ML IV.CONT PRN ×2 (17:54)
[2017-11-03 17:58] LABS: Anion Gap 6 meq/L (5-15); Blood Urea Nitrogen 50 mg/dL (7-18); Calcium 8.1 mg/dL (8.5-10.1); Carbon Dioxide 31.9 meq/L (21.0-32.0); Chloride 112 meq/L (98-107); Glomerular Filtration Rate Greater Than 89 mL/min (>89); Glucose,Random 134 mg/dL (74-106); Magnesium 2.9 mg/dL (1.5-2.5); Potassium 3.7 meq/L (3.5-5.1); Sodium 150 meq/L (136-145)
[2017-11-03 18:02] LABS: Creatine Kinase 299 U/L (39-308); Troponin I 0.02 ng/mL (0.02-0.05)
[2017-11-03 18:07] LABS: ABG Base Excess 7.9 mmol/L (-2-2); ABG PCO2 50 mmHg (38-42); ABG PO2 154 mmHg (61-120)
[2017-11-03 18:15] LABS: Creatine Kinase MB 0.5 ng/mL (0.5-3.6)
[2017-11-04] MEDS ORDERED: Metoprolol Inj 5 MG/5 ML Vial IV.PUSH ONE (00:15)
[2017-11-04] MEDS ORDERED: Metoprolol Inj 5 MG/5 ML Vial IV.PUSH PRN (00:39)
[2017-11-04] MEDS: Phenylephrine Inj 40 MG in Dextrose 5% in Water Inj 496 ML IV.CONT PRN ×8 (01:16→13:13)
[2017-11-04] MEDS: fentaNYL 10 mcg/mL Premix Drip 2,500 MCG/250 ML BAG IV.SIG PRN ×2 (01:17→12:00)
[2017-11-04] MEDS: Propofol 1000 mg/100 ml Inj 1,000 MG/100 ML BOTTLE IV.CONT PRN ×8 (01:17→23:42)
[2017-11-04] MEDS: Oral Hygiene Kit OROPHARYNG SCH ×4 (03:40→23:38)
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
[2017-11-04] MEDS: Piperacil/Tazo 4.5 GM Premix 4.5 GM/100 ML BAG IV.SIG SCH ×4 (05:17→22:15)
[2017-11-04 05:34] LABS: Hematocrit 26.9 % (39.0-51.0); Mean Corpuscular HGB Conc 33.5 % (32.0-36.0); Mean Corpuscular Hemoglobin 29.7 pg (27.0-34.0); Mean Corpuscular Volume 88.6 fL (80.0-100.0); Mean Platelet Volume 9.1 fL (7.0-11.0); Platelet Count 212 th/mm3 (150-450); Red Blood Count 3.03 mil/mm3 (4.50-5.90); Red Cell Distribution Width 16.9 % (11.6-17.2); White Blood Count 13.6 th/mm3 (4.0-11.0)
[2017-11-04 05:50] LABS: ABG Base Excess 6.9 mmol/L (-2-2); ABG PCO2 47 mmHg (38-42); ABG PO2 90 mmHg (61-120)
[2017-11-04 05:59] LABS: Anion Gap 7 meq/L (5-15); Blood Urea Nitrogen 46 mg/dL (7-18); Calcium 8.1 mg/dL (8.5-10.1); Carbon Dioxide 31.1 meq/L (21.0-32.0); Chloride 111 meq/L (98-107); Glomerular Filtration Rate Greater Than 89 mL/min (>89); Glucose,Random 129 mg/dL (74-106); Potassium 3.7 meq/L (3.5-5.1); Sodium 149 meq/L (136-145)
[2017-11-04 07:40] LABS: Dohle Bodies Present; Eosinophils 5 % (0-4); Lymphocytes 5 % (9-44); Metamyelocytes 2 % (0-1); Monocytes 5 % (0-8); Tallied Nucleated RBC 4 (0-0)
[2017-11-04 07:41] LABS: Toxic Vacuolation Present
[2017-11-04 07:42] LABS: Platelet Estimate Normal (Normal); Platelet Morphology Normal (Normal)
[2017-11-04] MEDS: Chlorhexidine 0.12% Oral Kit 15 ML UDC OROPHARYNG SCH ×2 (09:21→20:19)
[2017-11-04] MEDS: Enoxaparin Inj 30 MG/0.3 ML Syringe SQ SCH ×2 (09:24→20:19)
[2017-11-04] MEDS: Senna/Docusate Sodium 8.6/50 MG Tablet PO SCH ×2 (09:25→20:19)
[2017-11-04] MEDS: Famotidine 20 MG Tablet PO SCH ×2 (09:25→20:19)
[2017-11-04] MEDS ORDERED: Sodium Chlor 0.9% Inj 250 ML IV.SIG SCH (10:00)
[2017-11-04] MEDS ORDERED: Albumin Human 5% Inj 500 ML IV.SIG ONE (10:00)
--- NOTE | 2017-11-04 10:16 | P.PNNS ---
Subjective Interval history: 10/30: The patient went emergently for an intraoperative reduction of a C6-7 left facet dislocation followed by a C5-6 and C6-7 anterior cervical discectomy with interbody fusion and instrumentation. He was also placed in a Halo while in surgery. Post-operatively the patient returned to the ISC unit for further care and management. 10/31: Initially went to see patient this morning and he was in MRI. Therefore the patient was seen after he returned. He is comatose but does have propofol infusing for sedation. He had no response to any stimulation upon evaluation. The Halo is in place and the pin sites look good. 11/01: This afternoon the patient is lethargic when seen. He continues to have propofol infusing for sedation and remains intubated and mechanically ventilated. He did spontaneously lift both upper extremities off the bed when this practitioner spoke to him. He did not follow any commands but did move the upper extremities to noxious stimulation but not the lower. 11/02: The patient is comatose when seen but does have propofol infusing for sedation at a higher dose than yesterday. He is intubated and mechanically ventilated. He had no response to any stimulation. 11/03: When seen this morning the patient is lethargic although his eyes are partially open. He is sedated with propofol. Nursing had just finished turning him when seen. She did report that he spontaneously moved the upper extremities. Upon evaluation the patient did move the upper extremities to noxious stimulation but not the lower. He did not follow any commands. The Halo is intact and there are no signs of infection to the pin sites. Nursing did say that Trauma does not want a sedation vacation at this time. The patient is on two vasopressors for blood pressure support. 11/04: The patient had tachycardia into the 150s with spikes into the 170s late yesterday afternoon. He was given a beta-ankit by the Communications Lead and his rate came down to the 140s. Cardiology was notified. He was transfused two units packed red blood cells by Trauma. This morning when seen the patient's heart rate is in the 90s. He is receiving one unit of packed red blood cells. He has a vasopressor infusing for blood pressure support. He continues to be intubated and mechanically ventilated. He had no response to any stimulation but is sedated with propofol. <Jacek Aragon E - Last Filed: 11/04/17 10:22> Physical Exam Vital signs: Vital Signs 11/03/17 12:00 11/03/17 13:35 11/03/17 14:00 Temperature 99.4 F Pulse Rate 110 H 112 H Respiratory Rate 24 24 Blood Pressure 116/56 L Pulse Oximetry 100 100 11/03/17 16:00 11/03/17 16:10 11/03/17 16:46 Temperature 99.9 F H 100.3 F H 100.3 F H Pulse Rate 110 H 110 H 154 H Respiratory Rate 24 25 H 27 H Blood Pressure 121/57 L 120/67 133/61 Pulse Oximetry 100 100 97 11/03/17 16:48 11/03/17 16:50 11/03/17 18:00 Temperature 100.4 F H Pulse Rate 153 H 118 H Respiratory Rate 27 H 26 H Blood Pressure 133/63 Pulse Oximetry 97 11/03/17 20:00 11/03/17 20:30 11/03/17 20:45 Temperature 100.8 F H 100.7 F H Pulse Rate 113 H 109 H Respiratory Rate 24 24 24 Blood Pressure 113/50 L 102/50 L Pulse Oximetry 100 100 100 11/04/17 00:00 11/04/17 03:44 11/04/17 04:00 Temperature 100.3 F H 99.6 F Pulse Rate 150 H 104 H Respiratory Rate 24 25 H 24 Blood Pressure 102/55 L 130/60 Pulse Oximetry 98 97 97 11/04/17 08:26 11/04/17 09:57 Temperature 98.3 F Pulse Rate Respiratory Rate 24 24 Blood Pressure 119/57 L Pulse Oximetry 98 Intake & Output 11/03/17 11/04/17 11/04/17 18:59 06:59 18:59 Intake Total 3315 / 3315 4642 / 4642 1600 / 1600 Output Total 1800 / 1800 1400 / 1400 Balance 1515 / 1515 3242 / 3242 1600 / 1600 Weight 119.2 kg Intake: IV 2940 / 2940 2650 / 2650 1600 / 1600 LR 1000 mL Inj 1,000 ML @ 999 1000 / 1000 mls/hr IV.CONT .Q1H1M [facility] Rx#: [id number] Neosynephrine Inj 40 MG In D5W 1000 / 1000 500 / 500 Inj 496 ML @ 40 MCG/MIN 30 mls/ hr IV.CONT TITRATE PRN Rx#: [id number] Diprivan 1000 mg/100 ml Inj 1, 200 / 200 200 / 200 100 / 100 000 mg In 100 ml @ 5 MCG/KG/MIN 3.018 mls/hr IV.CONT TITRATE PRN Rx#:[id number] Pitressin Inj 40 UNIT In D5W 20 / 20 Inj 98 ML @ 0.04 UNITS/MIN 6 mls/hr IV.CONT CONT [facility] Rx#: [id number] Alburx 5% Inj 500 ML @ 250 mls/ 500 / 500 hr IV.SIG ONCE ONE Rx#:[id number] LR 1000 mL Inj 1,000 ML @ 75 1000 / 1000 1000 / 1000 mls/hr IV.SIG .[id number] [facility] Rx#: [id number] Levophed-Dextrose 4 mg/250 ml 500 / 500 Drip 4 mg In 250 ml @ 2 MCG/MIN 7.5 mls/hr IV.SIG TITRATE PRN Rx#:[id number] Zosyn 4.5 GM Premix 4.5 gm In 200 / 200 200 / 200 100 ml @ 200 mls/hr IV.SIG Q6H [facility] Rx#:[id number] Vancomycin Inj 2,000 MG In NS 520 / 520 Inj 500 ML @ 250 mls/hr IV.SIG Q24H [facility] Rx#:[id number] fentaNYL 10 mcg/mL Premix Drip 250 / 250 2,500 mcg In 250 ml @ 50 MCG/HR 5 mls/hr IV.SIG TITRATE PRN Rx #:[id number] Oral 1400 / 1400 Tube Feeding 155 / 155 22 / 22 Tube Irrigant 120 / 120 120 / 120 Other 50 / 50 Rbc As-3 Leukoreduced Unit 50 / 50 [id number] Intake (Blood Product) Amt 100 / 100 400 / 400 0 / 0 Rbc As-3 Leukoreduced Unit 0 / 0 [id number] Rbc As-3 Leukoreduced Unit 400 / 400 [id number] Rbc As-3 Leukoreduced Unit 100 / 100 [id number] Output: Urine 1800 / 1800 Stool 0 / 0 Urine Amount (Catheter) 1400 / 1400 Indwelling Urethral Catheter 1400 / 1400 Gastric Drainage 0 / 0 0 / 0 Oral Orogastric Tube 0 / 0 0 / 0 Other: Date of Last Bowel Movement 11/02/17 11/02/17 # Bowel Movements 0 Narrative: GENERAL: Obtunded. Sedated w/propofol 40 mcg/kg/min infusing for sedation. He also has fentanyl 200 mcg/hr infusing for pain control. He is intubated and on PRVC A/C settings. He is not in any apparent distress. On phenylephrine for blood pressure support. Heart rate in the 90s, sinus rhythm w/o ectopy noted. Receiving 1 unit PRBC. HEENT: Abrasions & ecchymosis noted to face. Pin sites for Halo w/o any drainage , erythema or streaking noted. Pupils 2 mm reactive bilaterally. Orally intubated. OGT. NECK: Halo in place. Dry & intact anterior neck surgical incision dressing w/ shadowing noted along edge. No JVD. Trachea midline. MUSCULOSKELETAL: No extremity response to noxious stimulation. No evident deformity or clubbing. 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 NEUROLOGICAL: Obtunded but sedated w/propofol. No eyes opening to any stimulation. Pupils 2 mm reactive bilaterally. Nonverbal, intubated. Did not follow any commands. No extremity response to local or central noxious stimulation. - Urinary Catheter Management Indwelling Urethral Catheter Cath placed during this visit: no Reason for continuing: Hourly intake/output <Jacek Aragon E - Last Filed: 11/04/17 10:22> Vital signs: Vital Signs 11/05/17 00:00 11/05/17 00:08 11/05/17 04:00 Temperature 99.9 F H 100.1 F H Pulse Rate 101 H 112 H Respiratory Rate 24 24 24 Blood Pressure 110/51 L 129/52 L Pulse Oximetry 98 98 99 11/05/17 04:16 11/05/17 08:00 11/05/17 08:16 Temperature 100.1 F H Pulse Rate 110 H Respiratory Rate 24 24 24 Blood Pressure 120/50 L Pulse Oximetry 99 99 98 11/05/17 08:49 11/05/17 11:30 11/05/17 12:00 Temperature 100.1 F H 101.1 F H Pulse Rate 111 H 119 H Respiratory Rate 24 24 30 H Blood Pressure 116/85 117/51 L Pulse Oximetry 99 95 95 11/05/17 16:00 11/05/17 17:08 11/05/17 21:02 Temperature 100.5 F H Pulse Rate 118 H Respiratory Rate 16 23 16 Blood Pressure 108/58 L Pulse Oximetry 97 100 Intake & Output 11/05/17 11/05/17 11/06/17 06:59 18:59 06:59 Intake Total 2194 / 2194 1578 / 1578 100 / 100 Output Total 1500 / 1500 1200 / 1200 Balance 694 / 694 378 / 378 100 / 100 Weight 122.7 kg Intake: IV 1850 / 1850 1250 / 1250 100 / 100 Neosynephrine Inj 40 MG In D5W 100 / 100 Inj 496 ML @ 40 MCG/MIN 30 mls/ hr IV.CONT TITRATE PRN Rx#: [id number] Diprivan 1000 mg/100 ml Inj 1, 400 / 400 200 / 200 100 / 100 000 mg In 100 ml @ 5 MCG/KG/MIN 3.018 mls/hr IV.CONT TITRATE PRN Rx#:[id number] LR 1000 mL Inj 1,000 ML @ 75 1000 / 1000 300 / 300 mls/hr IV.SIG .[id number] [facility] Rx#: [id number] Zosyn 4.5 GM Premix 4.5 gm In 200 / 200 200 / 200 100 ml @ 200 mls/hr IV.SIG Q6H [facility] Rx#:[id number] KCl 40 mEq Premix Inj 40 meq In 200 / 200 100 ml @ 25 mls/hr IV.SIG Q2H [facility] Rx#:[id number] fentaNYL 10 mcg/mL Premix Drip 250 / 250 250 / 250 2,500 mcg In 250 ml @ 50 MCG/HR 5 mls/hr IV.SIG TITRATE PRN Rx #:[id number] Tube Feeding 284 / 284 268 / 268 Tube Irrigant 60 / 60 Water Bolus Amount 60 / 60 Output: Stool 0 / 0 Urine Amount (Catheter) 1500 / 1500 1200 / 1200 Indwelling Urethral Catheter 1500 / 1500 1200 / 1200 Gastric Drainage 0 / 0 0 / 0 Oral Orogastric Tube 0 / 0 0 / 0 Other: Date of Last Bowel Movement 11/02/17 11/05/17 # Bowel Movements 0 1 - Urinary Catheter Management Indwelling Urethral Catheter Cath placed during this visit: no <Jori Tesfaye - Last Filed: 11/05/17 21:13> Assessment and Plan - Plan Impression: (1) Contusion of cervical cord (2) Dislocation of cervical facet joint The patient is critical. Obtunded although has sedation infusing. No motor response to any noxious stimulation. He is requiring vasopressor support for his blood pressure. Past 24 hrs: 100.8 T max. Tachycardia & tachypnea. SBP intermittently below desired range. Reviewed labs for today. Development of leukocytosis. Increase in haemoglobin level. Sodium 149. eGFR 79. MRI cervical spine demonstrated post-fusion changes at C5-C7 levels w /reduction of the C6 on C7 subluxation; persistent increased C7 level cord signal; persistent epidural space fluid at C6-C7 level w/o change, effusion vs haemorrhage; degenerative changes. POD #4 () s/p: 1. Intraoperative reduction of C6-7 left facet dislocation with intraoperative fluoroscopy C arm imaging 2. C5-6 and C6-7 anterior cervical discectomy, partial, greater than 50% C6 corpectomy for spinal cord decompression. 3. C5-6 and C6-7 anterior interbody fusion, allograft bone 4. C5-C7 anterior cervical instrumentation 5. Halo placement PEGGY drain d/c'd . Plan: Primary management per Trauma Service. Neuro checks. Okay for pharmacologic DVT prophylaxis. Mechanical DVT prophylaxis. Stress ulcer prophylaxis. Maintain SBP between 110 and 140 mm Hg. <Jacek Aragon - Last Filed: 11/04/17 10:22> - Assessment (1) Contusion of cervical cord Code(s): S14.109A - Unspecified injury at unspecified level of cervical spinal cord, initial encounter Status: Acute Qualifiers: Encounter type: initial encounter Qualified Code(s): S14.109A - Unspecified injury at unspecified level of cervical spinal cord, initial encounter (2) Elevated troponin Code(s): R74.8 - Abnormal levels of other serum enzymes Status: Acute - Attending Attestation The exam, history, and the medical decision-making described in the above note were completed with the assistance of the mid-level provider. I reviewed and agree with the findings presented. I attest that I had a [id number] encounter with the patient on the same day, and personally performed and documented my assessment and findings in the medical record. Patient discussed with in the intensive care unit. Postoperative MRI reveals good spinal cord decompression but persistent increased signal intensity within the central cord similar to preoperative study. Continuing ventilator support, sedation as needed. <Jori Tesfaye - Last Filed: 11/05/17 21:13>
[2017-11-04] MEDS: Vancomycin Inj 2,000 MG in Sodium Chlor 0.9% Inj 500 ML IV.SIG SCH (11:05)
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
--- NOTE | 2017-11-04 18:44 | ECG ---
Date Performed: 11/03/2017 Time Performed: 17:18:04 PTAGE: 66 years EKG: Likely atrial fibrillation/flutter with a rapid ventricular response Lead(s) unsuitable for analysis: V2 IV conduction defect Inferior/lateral ST-T changes are nonspecific Abnormal ECG Compare d to PREVIOUS TRACING , atrial fibrillation/flutter has replaced Sinus rhythm . PREVIOUS TRACIN10/29/2017 09.05 DOCTOR: Joel Perales Interpretating Date/Time 11/04/2017 18:42:43
[2017-11-05] MEDS: fentaNYL 10 mcg/mL Premix Drip 2,500 MCG/250 ML BAG IV.SIG PRN ×3 (00:02→22:05)
[2017-11-05] MEDS: Propofol 1000 mg/100 ml Inj 1,000 MG/100 ML BOTTLE IV.CONT PRN ×5 (02:30→20:24)
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
[2017-11-05] MEDS: Piperacil/Tazo 4.5 GM Premix 4.5 GM/100 ML BAG IV.SIG SCH ×4 (04:06→22:04)
[2017-11-05] MEDS: Oral Hygiene Kit OROPHARYNG SCH ×3 (04:07→17:12)
[2017-11-05 04:31] LABS: Baso % (Auto) 0.1 % (0.0-2.0); Eos # (Auto) 0.4 th/mm3 (0.0-0.4); Eos % (Auto) 2.9 % (0.0-4.0); Hematocrit 29.6 % (39.0-51.0); Hemoglobin 9.9 gm/dL (13.0-17.0); Lymph # (Auto) 0.8 th/mm3 (1.0-4.8); Lymph % (Auto) 6.1 % (9.0-44.0); Mean Corpuscular HGB Conc 33.3 % (32.0-36.0); Mean Corpuscular Hemoglobin 29.9 pg (27.0-34.0); Mean Corpuscular Volume 89.8 fL (80.0-100.0); Mean Platelet Volume 8.9 fL (7.0-11.0); Mono # (Auto) 0.5 th/mm3 (0.0-0.9); Mono % (Auto) 3.8 % (0.0-8.0); Neut # (Auto) 10.7 th/mm3 (1.8-7.7); Neut % (Auto) 87.1 % (16.0-70.0); Platelet Count 205 th/mm3 (150-450); Red Cell Distribution Width 16.4 % (11.6-17.2); White Blood Count 12.3 th/mm3 (4.0-11.0)
[2017-11-05 05:01] LABS: Alanine Aminotransferase 115 U/L (12-78); Albumin 1.9 g/dL (3.4-5.0); Alkaline Phosphatase 61 U/L (45-117); Anion Gap 11 meq/L (5-15); Aspartate Aminotransferase 88 U/L (15-37); Blood Urea Nitrogen 34 mg/dL (7-18); Calcium 8.4 mg/dL (8.5-10.1); Carbon Dioxide 28.3 meq/L (21.0-32.0); Chloride 113 meq/L (98-107); Glomerular Filtration Rate Greater Than 89 mL/min (>89); Glucose,Random 99 mg/dL (74-106); Potassium 3.1 meq/L (3.5-5.1); Sodium 152 meq/L (136-145); Total Protein 5.4 g/dL (6.4-8.2)
[2017-11-05 06:23] LABS: ABG Base Excess 3.2 mmol/L (-2-2); ABG PCO2 45 mmHg (38-42); ABG PO2 108 mmHg (61-120)
[2017-11-05] MEDS: Famotidine 20 MG Tablet PO SCH ×2 (09:03→20:09)
[2017-11-05] MEDS: Chlorhexidine 0.12% Oral Kit 15 ML UDC OROPHARYNG SCH ×2 (09:03→20:10)
[2017-11-05] MEDS: Enoxaparin Inj 30 MG/0.3 ML Syringe SQ SCH ×2 (09:03→20:10)
[2017-11-05] MEDS: Senna/Docusate Sodium 8.6/50 MG Tablet PO SCH ×2 (09:03→20:09)
[2017-11-05] MEDS ORDERED: Potassium Chloride 25 MEQ Effervescent Tablet PO PRN (09:19)
[2017-11-05] MEDS ORDERED: Potassium Phosphate Inj 30 MMOL in Sodium Chlor 0.9% Inj 250 ML IV.SIG PRN (09:19)
[2017-11-05] MEDS ORDERED: Potassium Chlor 40 mEq Premix 40 MEQ/100 ML PIGGYBACK IV.SIG PRN (09:19)
[2017-11-05] MEDS ORDERED: Potassium Chlor 20 mEq Premix 20 MEQ/100 ML PIGGYBACK IV.SIG PRN ×2 (09:19)
[2017-11-05] MEDS ORDERED: Magnesium Oxide 400 MG Tablet PO PRN (09:19)
[2017-11-05] MEDS ORDERED: Magnesium Sulfate Inj 2 GM in Sodium Chlor 0.9% Inj 96 ML IV.SIG PRN (09:19)
[2017-11-05] MEDS ORDERED: Sodium Phosphate Inj 30 MMOL in Sodium Chlor 0.9% Inj 250 ML IV.SIG PRN (09:19)
[2017-11-05] MEDS ORDERED: Magnesium Sulfate Inj 4 GM in Sodium Chlor 0.9% Inj 92 ML IV.SIG PRN (09:19)
[2017-11-05] MEDS ORDERED: Potassium Phosphate 500 MG Soluble Tablet PO PRN ×2 (09:19)
[2017-11-05] MEDS: Sodium Chloride 0.45 % Inj 1,000 ML IV.CONT SCH (09:44)
[2017-11-05] MEDS ORDERED: Pharmacy Ordered Lab Info OTHER ONE (10:45)
--- NOTE | 2017-11-05 11:03 | P.PNNS ---
Subjective Interval history: 10/30: The patient went emergently for an intraoperative reduction of a C6-7 left facet dislocation followed by a C5-6 and C6-7 anterior cervical discectomy with interbody fusion and instrumentation. He was also placed in a Halo while in surgery. Post-operatively the patient returned to the [facility] unit for further care and management. 10/31: Initially went to see patient this morning and he was in MRI. Therefore the patient was seen after he returned. He is comatose but does have propofol infusing for sedation. He had no response to any stimulation upon evaluation. The Halo is in place and the pin sites look good. 11/01: This afternoon the patient is lethargic when seen. He continues to have propofol infusing for sedation and remains intubated and mechanically ventilated. He did spontaneously lift both upper extremities off the bed when this practitioner spoke to him. He did not follow any commands but did move the upper extremities to noxious stimulation but not the lower. 11/02: The patient is comatose when seen but does have propofol infusing for sedation at a higher dose than yesterday. He is intubated and mechanically ventilated. He had no response to any stimulation. 11/03: When seen this morning the patient is lethargic although his eyes are partially open. He is sedated with propofol. Nursing had just finished turning him when seen. She did report that he spontaneously moved the upper extremities. Upon evaluation the patient did move the upper extremities to noxious stimulation but not the lower. He did not follow any commands. The Halo is intact and there are no signs of infection to the pin sites. Nursing did say that Trauma does not want a sedation vacation at this time. The patient is on two vasopressors for blood pressure support. 11/04: The patient had tachycardia into the 150s with spikes into the 170s late yesterday afternoon. He was given a beta-ankit by the [employer] [facility] and his rate came down to the 140s. Cardiology was notified. He was transfused two units packed red blood cells by Trauma. This morning when seen the patient's heart rate is in the 90s. He is receiving one unit of packed red blood cells. He has a vasopressor infusing for blood pressure support. He continues to be intubated and mechanically ventilated. He had no response to any stimulation but is sedated with propofol. 11/05: This morning the patient is drowsy but has his eyes open. He continues to have propofol infusing for sedation but it has been decreased. He continues to be intubated and mechanically ventilated. His states that Trauma is planning on traching the patient, possibly tomorrow. He is tachycardiac in the 120s. He had no motor response to any noxious stimulation. The does say the patient moved both upper extremities spontaneously and lifted the right shoulder of the bed. <Jacek Aragon E - Last Filed: 11/05/17 11:08> Physical Exam Vital signs: Vital Signs 11/04/17 11:30 11/04/17 12:00 11/04/17 14:00 Temperature 99.0 F Pulse Rate 98 H 100 H Respiratory Rate 25 H 24 Blood Pressure 119/49 L Pulse Oximetry 95 97 11/04/17 16:00 11/04/17 16:03 11/04/17 18:00 Temperature 100.0 F H Pulse Rate 114 H 109 H Respiratory Rate 24 24 Blood Pressure 153/59 H Pulse Oximetry 97 99 11/04/17 20:00 11/04/17 20:08 11/05/17 00:00 Temperature 99.8 F H 99.9 F H Pulse Rate 112 H 101 H Respiratory Rate 25 H 24 24 Blood Pressure 138/56 L 110/51 L Pulse Oximetry 97 97 98 11/05/17 00:08 11/05/17 04:00 11/05/17 04:16 Temperature 100.1 F H Pulse Rate 112 H Respiratory Rate 24 24 24 Blood Pressure 129/52 L Pulse Oximetry 98 99 99 11/05/17 08:00 11/05/17 08:16 11/05/17 08:49 Temperature 100.1 F H 100.1 F H Pulse Rate 110 H 111 H Respiratory Rate 24 24 24 Blood Pressure 120/50 L 116/85 Pulse Oximetry 99 98 99 Intake & Output 11/04/17 11/05/17 11/05/17 18:59 06:59 18:59 Intake Total 4582 / 4582 2194 / 2194 750 / 750 Output Total 1350 / 1350 1500 / 1500 Balance 3232 / 3232 694 / 694 750 / 750 Weight 122.7 kg Intake: IV 4270 / 4270 1850 / 1850 750 / 750 Neosynephrine Inj 40 MG In D5W 1000 / 1000 Inj 496 ML @ 40 MCG/MIN 30 mls/ hr IV.CONT TITRATE PRN Rx#: [id number] Diprivan 1000 mg/100 ml Inj 1, 300 / 300 400 / 400 100 / 100 000 mg In 100 ml @ 5 MCG/KG/MIN 3.018 mls/hr IV.CONT TITRATE PRN Rx#:[id number] Alburx 5% Inj 500 ML @ 250 mls/ 500 / 500 hr IV.SIG ONCE ONE Rx#:[id number] LR 1000 mL Inj 1,000 ML @ 75 1000 / 1000 1000 / 1000 300 / 300 mls/hr IV.SIG .[id number] [facility] Rx#: [id number] Zosyn 4.5 GM Premix 4.5 gm In 200 / 200 200 / 200 100 / 100 100 ml @ 200 mls/hr IV.SIG Q6H [facility] Rx#:[id number] NS Inj 250 ML @ 15 mls/hr IV. 500 / 500 SIG ONCE [facility] Rx#:[id number] Vancomycin Inj 2,000 MG In NS 500 / 500 Inj 500 ML @ 250 mls/hr IV.SIG Q24H [facility] Rx#:[id number] fentaNYL 10 mcg/mL Premix Drip 250 / 250 250 / 250 250 / 250 2,500 mcg In 250 ml @ 50 MCG/HR 5 mls/hr IV.SIG TITRATE PRN Rx #:[id number] Tube Feeding 252 / 252 284 / 284 Tube Irrigant 60 / 60 60 / 60 Intake (Blood Product) Amt 0 / 0 Rbc As-3 Leukoreduced Unit 0 / 0 [id number] Output: Urine 1350 / 1350 Stool 0 / 0 0 / 0 Urine Amount (Catheter) 1500 / 1500 Indwelling Urethral Catheter 1500 / 1500 Gastric Drainage 0 / 0 Oral Orogastric Tube 0 / 0 Other: Date of Last Bowel Movement 11/02/17 11/02/17 11/02/17 # Bowel Movements 0 0 Narrative: GENERAL: Drowsy. Sedated w/propofol 30 mcg/kg/min infusing for sedation. He also has fentanyl 200 mcg/hr infusing for pain control. He is intubated and on PRVC A/C settings. He is not in any apparent distress. Heart rate in the 120s, sinus tachycardia w/o ectopy noted. HEENT: Abrasions & ecchymosis noted to face. Pin sites for Halo w/o any drainage , erythema or streaking noted. Pupils 2 mm reactive bilaterally. Orally intubated. OGT. NECK: Halo in place. Dry & intact anterior neck surgical incision dressing w/ shadowing noted along edge, incision well approximated w/steri-strips intact, no drainage, erythema or streaking noted. No JVD. Trachea midline. MUSCULOSKELETAL: No extremity response to noxious stimulation. No evident deformity or clubbing. 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 NEUROLOGICAL: Drowsy but sedated w/propofol. Spontaneous eye opening. Pupils 2 mm reactive bilaterally. Nonverbal, intubated. Did not follow any commands. No extremity response to local or central noxious stimulation. - Urinary Catheter Management Indwelling Urethral Catheter Cath placed during this visit: no Reason for continuing: Hourly intake/output <Jacek Aragon E - Last Filed: 11/05/17 11:08> Vital signs: Vital Signs 11/05/17 00:00 11/05/17 00:08 11/05/17 04:00 Temperature 99.9 F H 100.1 F H Pulse Rate 101 H 112 H Respiratory Rate 24 24 24 Blood Pressure 110/51 L 129/52 L Pulse Oximetry 98 98 99 11/05/17 04:16 11/05/17 08:00 11/05/17 08:16 Temperature 100.1 F H Pulse Rate 110 H Respiratory Rate 24 24 24 Blood Pressure 120/50 L Pulse Oximetry 99 99 98 11/05/17 08:49 11/05/17 11:30 11/05/17 12:00 Temperature 100.1 F H 101.1 F H Pulse Rate 111 H 119 H Respiratory Rate 24 24 30 H Blood Pressure 116/85 117/51 L Pulse Oximetry 99 95 95 11/05/17 16:00 11/05/17 17:08 11/05/17 21:02 Temperature 100.5 F H Pulse Rate 118 H Respiratory Rate 16 23 16 Blood Pressure 108/58 L Pulse Oximetry 97 100 Intake & Output 11/05/17 11/05/17 11/06/17 06:59 18:59 06:59 Intake Total 2194 / 2194 1578 / 1578 100 / 100 Output Total 1500 / 1500 1200 / 1200 Balance 694 / 694 378 / 378 100 / 100 Weight 122.7 kg Intake: IV 1850 / 1850 1250 / 1250 100 / 100 Neosynephrine Inj 40 MG In D5W 100 / 100 Inj 496 ML @ 40 MCG/MIN 30 mls/ hr IV.CONT TITRATE PRN Rx#: [id number] Diprivan 1000 mg/100 ml Inj 1, 400 / 400 200 / 200 100 / 100 000 mg In 100 ml @ 5 MCG/KG/MIN 3.018 mls/hr IV.CONT TITRATE PRN Rx#:[id number] LR 1000 mL Inj 1,000 ML @ 75 1000 / 1000 300 / 300 mls/hr IV.SIG .[id number] ITA Rx#: [id number] Zosyn 4.5 GM Premix 4.5 gm In 200 / 200 200 / 200 100 ml @ 200 mls/hr IV.SIG Q6H ITA Rx#:[id number] KCl 40 mEq Premix Inj 40 meq In 200 / 200 100 ml @ 25 mls/hr IV.SIG Q2H PRN Rx#:[id number] fentaNYL 10 mcg/mL Premix Drip 250 / 250 250 / 250 2,500 mcg In 250 ml @ 50 MCG/HR 5 mls/hr IV.SIG TITRATE PRN Rx #:[id number] Tube Feeding 284 / 284 268 / 268 Tube Irrigant 60 / 60 Water Bolus Amount 60 / 60 Output: Stool 0 / 0 Urine Amount (Catheter) 1500 / 1500 1200 / 1200 Indwelling Urethral Catheter 1500 / 1500 1200 / 1200 Gastric Drainage 0 / 0 0 / 0 Oral Orogastric Tube 0 / 0 0 / 0 Other: Date of Last Bowel Movement 11/02/17 11/05/17 # Bowel Movements 0 1 - Urinary Catheter Management Indwelling Urethral Catheter Cath placed during this visit: no <Jori Tesfaye - Last Filed: 11/05/17 21:04> Assessment and Plan - Plan Impression: (1) Contusion of cervical cord (2) Dislocation of cervical facet joint The patient remains critical. Drowsy but spontaneous eye opening w/sedation infusing. No motor response to any noxious stimulation. The reports some spontaneous movement of both UEs & lifted the right shoulder off the bed. Past 24 hrs: 100.1 T max. Tachycardia & tachypnea. SBP above desired range once yesterday afternoon. Reviewed labs for today. Improvement in leukocytosis. Increase in haemoglobin level. Sodium 152. eGFR >89. MRI cervical spine demonstrated post-fusion changes at C5-C7 levels w /reduction of the C6 on C7 subluxation; persistent increased C7 level cord signal; persistent epidural space fluid at C6-C7 level w/o change, effusion vs haemorrhage; degenerative changes. POD #5 () s/p: 1. Intraoperative reduction of C6-7 left facet dislocation with intraoperative fluoroscopy C arm imaging 2. C5-6 and C6-7 anterior cervical discectomy, partial, greater than 50% C6 corpectomy for spinal cord decompression. 3. C5-6 and C6-7 anterior interbody fusion, allograft bone 4. C5-C7 anterior cervical instrumentation 5. Halo placement PEGGY drain d/c'd . Plan: Primary & critical care management per Trauma Service. Neuro checks. Okay for pharmacologic DVT prophylaxis. Mechanical DVT prophylaxis. Stress ulcer prophylaxis. Maintain SBP between 110 and 140 mm Hg. No sedation vacation per Trauma Service. <Jacek Aragon - Last Filed: 11/05/17 11:08> - Attending Attestation The exam, history, and the medical decision-making described in the above note were completed with the assistance of the mid-level provider. I reviewed and agree with the findings presented. I attest that I had a [id number] encounter with the patient on the same day, and personally performed and documented my assessment and findings in the medical record. Patient remains intubated on propofol. Continued pulmonary issues. Difficult to accurately assess his neurologic function with sedation, but appears to have persistent significant lower extremity motor deficit. Continuing ventilator and sedation wean as tolerated. <Jori Tesfaye - Last Filed: 11/05/17 21:04>
[2017-11-05 13:37] LABS: ABG Base Excess 6.8 mmol/L (-2-2); ABG PCO2 51 mmHg (38-42); ABG PO2 113 mmHg (61-120)
[2017-11-05] MEDS: Potassium Chlor 40 mEq Premix 40 MEQ/100 ML PIGGYBACK IV.SIG PRN ×2 (14:19→16:30)
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
[2017-11-05] MEDS ORDERED: Vancomycin Consult Pharmacy 1 EACH OTHER SCH (16:00)
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
[2017-11-05] MEDS: Vancomycin Inj 1,500 MG in Sodium Chlor 0.9% Inj 500 ML IV.SIG SCH (18:17)
[2017-11-06] MEDS ORDERED: Sod Chloride 0.9% Inj 1,000 ML IV.SIG ONE (00:30)
[2017-11-06] MEDS: Oral Hygiene Kit OROPHARYNG SCH ×4 (00:43→15:51)
[2017-11-06] MEDS: Propofol 1000 mg/100 ml Inj 1,000 MG/100 ML BOTTLE IV.CONT PRN ×5 (00:44→22:41)
[2017-11-06 00:48] LABS: Hematocrit 30.6 % (39.0-51.0); Hemoglobin 10.2 gm/dL (13.0-17.0)
[2017-11-06] MEDS ORDERED: Albumin Human 5% Inj 500 ML IV.SIG ONE (02:00)
[2017-11-06] MEDS: Piperacil/Tazo 4.5 GM Premix 4.5 GM/100 ML BAG IV.SIG SCH ×4 (04:45→22:40)
[2017-11-06 05:32] LABS: Baso % (Auto) 0.3 % (0.0-2.0); Eos # (Auto) 0.2 th/mm3 (0.0-0.4); Eos % (Auto) 1.6 % (0.0-4.0); Hematocrit 29.6 % (39.0-51.0); Hemoglobin 9.8 gm/dL (13.0-17.0); Lymph # (Auto) 0.9 th/mm3 (1.0-4.8); Lymph % (Auto) 6.2 % (9.0-44.0); Mean Corpuscular HGB Conc 33.2 % (32.0-36.0); Mean Corpuscular Hemoglobin 29.8 pg (27.0-34.0); Mean Corpuscular Volume 89.8 fL (80.0-100.0); Mean Platelet Volume 9.1 fL (7.0-11.0); Mono # (Auto) 0.9 th/mm3 (0.0-0.9); Mono % (Auto) 6.1 % (0.0-8.0); Neut # (Auto) 12.1 th/mm3 (1.8-7.7); Neut % (Auto) 85.8 % (16.0-70.0); Platelet Count 226 th/mm3 (150-450); Red Blood Count 3.29 mil/mm3 (4.50-5.90); Red Cell Distribution Width 16.3 % (11.6-17.2); White Blood Count 14.1 th/mm3 (4.0-11.0)
[2017-11-06] MEDS: Sodium Chloride 0.45 % Inj 1,000 ML IV.CONT SCH ×2 (05:37→14:40)
[2017-11-06] MEDS: Vancomycin Inj 1,500 MG in Sodium Chlor 0.9% Inj 500 ML IV.SIG SCH ×2 (05:37→17:44)
[2017-11-06 05:44] LABS: Alanine Aminotransferase 125 U/L (12-78); Albumin 2.1 g/dL (3.4-5.0); Anion Gap 5 meq/L (5-15); Aspartate Aminotransferase 97 U/L (15-37); Blood Urea Nitrogen 30 mg/dL (7-18); Calcium 7.9 mg/dL (8.5-10.1); Carbon Dioxide 31.5 meq/L (21.0-32.0); Chloride 117 meq/L (98-107); Glomerular Filtration Rate Greater Than 89 mL/min (>89); Glucose,Random 110 mg/dL (74-106); Potassium 3.7 meq/L (3.5-5.1); Sodium 153 meq/L (136-145)
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
[2017-11-06 05:47] LABS: Alkaline Phosphatase 62 U/L (45-117); Total Protein 5.6 g/dL (6.4-8.2)
[2017-11-06 06:14] LABS: ABG Base Excess 5.3 mmol/L (-2-2); ABG PCO2 49 mmHg (38-42); ABG PO2 99 mmHg (61-120)
[2017-11-06] MEDS: Chlorhexidine 0.12% Oral Kit 15 ML UDC OROPHARYNG SCH ×2 (09:24→20:13)
[2017-11-06] MEDS: Enoxaparin Inj 30 MG/0.3 ML Syringe SQ SCH ×2 (09:24→20:12)
[2017-11-06] MEDS: Famotidine 20 MG Tablet PO SCH ×2 (09:25→20:12)
[2017-11-06] MEDS: Senna/Docusate Sodium 8.6/50 MG Tablet PO SCH ×2 (09:25→20:13)
[2017-11-06 09:27] LABS: Lymphocytes 3 % (9-44); Metamyelocytes 1 % (0-1); Monocytes 2 % (0-8); Ovalocytes 1+; Platelet Estimate Normal (Normal); Platelet Morphology Normal (Normal)
[2017-11-06] MEDS: fentaNYL 10 mcg/mL Premix Drip 2,500 MCG/250 ML BAG IV.SIG PRN (11:40)
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
--- NOTE | 2017-11-06 16:43 | P.PNNS ---
Subjective Interval history: 11/06: sedated, halo intact. Physical Exam Vital signs: Vital Signs 11/05/17 17:08 11/05/17 20:00 11/05/17 21:02 Temperature 101.1 F H Pulse Rate 121 H Respiratory Rate 23 24 16 Blood Pressure 129/60 Pulse Oximetry 99 100 11/05/17 22:00 11/06/17 00:00 11/06/17 00:27 Temperature 101.3 F H Pulse Rate 118 H 116 H Respiratory Rate 22 22 Blood Pressure 107/59 L Pulse Oximetry 98 98 11/06/17 02:00 11/06/17 04:00 11/06/17 04:31 Temperature 101.1 F H Pulse Rate 114 H 126 H Respiratory Rate 22 20 Blood Pressure 159/70 H Pulse Oximetry 100 100 11/06/17 06:00 11/06/17 07:50 11/06/17 08:00 Temperature 101.4 F H Pulse Rate 118 H 121 H Respiratory Rate 16 20 Blood Pressure 141/66 H Pulse Oximetry 100 100 11/06/17 10:00 11/06/17 11:46 11/06/17 12:00 Temperature 101.4 F H Pulse Rate 123 H 120 H Respiratory Rate 21 22 Blood Pressure 119/63 Pulse Oximetry 97 98 11/06/17 12:10 11/06/17 14:00 Temperature Pulse Rate 109 H Respiratory Rate 23 Blood Pressure Pulse Oximetry Intake & Output 11/05/17 11/06/17 11/06/17 18:59 06:59 18:59 Intake Total 1578 / 1578 4117 / 4117 1052 / 1052 Output Total 1200 / 1200 1425 / 1425 Balance 378 / 378 2692 / 2692 1052 / 1052 Weight 124.8 kg Intake: IV 1250 / 1250 3750 / 3750 800 / 800 Neosynephrine Inj 40 MG In D5W 100 / 100 Inj 496 ML @ 40 MCG/MIN 30 mls/ hr IV.CONT TITRATE PRN Rx#: [id number] Diprivan 1000 mg/100 ml Inj 1, 200 / 200 300 / 300 200 / 200 000 mg In 100 ml @ 5 MCG/KG/MIN 3.018 mls/hr IV.CONT TITRATE PRN Rx#:[id number] 1/2 Normal Saline Inj 1,000 ML 1000 / 1000 @ 75 mls/hr IV.CONT .[id number] [facility] Rx#:[id number] Alburx 5% Inj 500 ML @ 250 mls/ 500 / 500 hr IV.SIG ONCE ONE Rx#:[id number] LR 1000 mL Inj 1,000 ML @ 75 300 / 300 mls/hr IV.SIG .[id number] [facility] Rx#: [id number] Zosyn 4.5 GM Premix 4.5 gm In 200 / 200 200 / 200 100 / 100 100 ml @ 200 mls/hr IV.SIG Q6H [facility] Rx#:[id number] KCl 40 mEq Premix Inj 40 meq In 200 / 200 100 ml @ 25 mls/hr IV.SIG Q2H [facility]N Rx#:[id number] NS Inj 1,000 ML @ 999 mls/hr IV 1000 / 1000 .SIG .Q1H1M ONE Rx#:[id number] Vancomycin Inj 1,500 MG In NS 500 / 500 250 / 250 Inj 500 ML @ 250 mls/hr IV.SIG Q12H [facility] Rx#:[id number] fentaNYL 10 mcg/mL Premix Drip 250 / 250 250 / 250 250 / 250 2,500 mcg In 250 ml @ 50 MCG/HR 5 mls/hr IV.SIG TITRATE PRN Rx #:[id number] Tube Feeding 268 / 268 247 / 247 132 / 132 Water Bolus Amount 60 / 60 120 / 120 Other 120 / 120 Output: Stool 0 / 0 Urine Amount (Catheter) 1200 / 1200 1425 / 1425 Indwelling Urethral Catheter 1200 / 1200 1425 / 1425 Gastric Drainage 0 / 0 Oral Orogastric Tube 0 / 0 Other: Date of Last Bowel Movement 11/05/17 11/02/17 11/06/17 # Bowel Movements 1 0 Narrative: Sedated, minimal eye opening not following commands halo brace intact pin sites clean and dry - Urinary Catheter Management Indwelling Urethral Catheter Cath placed during this visit: no Reason for continuing: Hourly intake/output Assessment and Plan - Plan Impression: C6-7 subluxation with central cord contusion, significant increased signal intensity on cervical MRI. s/p C6-7 anterior cervical discectomy, interbody fusion, s/p placement of halo brace Plan: cont pin care sedation weaning therapy and rehab
[2017-11-07] MEDS: Oral Hygiene Kit OROPHARYNG SCH ×4 (00:38→16:33)
[2017-11-07] MEDS: Propofol 1000 mg/100 ml Inj 1,000 MG/100 ML BOTTLE IV.CONT PRN ×5 (02:01→22:00)
[2017-11-07] MEDS: fentaNYL 10 mcg/mL Premix Drip 2,500 MCG/250 ML BAG IV.SIG PRN ×2 (03:39→18:09)
[2017-11-07] MEDS: Piperacil/Tazo 4.5 GM Premix 4.5 GM/100 ML BAG IV.SIG SCH ×3 (04:08→16:34)
[2017-11-07] MEDS ORDERED: Pharmacy Ordered Lab Info OTHER ONE (04:45)
[2017-11-07] MEDS: Vancomycin Inj 1,500 MG in Sodium Chlor 0.9% Inj 500 ML IV.SIG SCH ×2 (04:47→17:37)
[2017-11-07 05:21] LABS: Baso % (Auto) 0.3 % (0.0-2.0); Eos # (Auto) 0.4 th/mm3 (0.0-0.4); Hematocrit 30.3 % (39.0-51.0); Hemoglobin 9.8 gm/dL (13.0-17.0); Lymph % (Auto) 7.1 % (9.0-44.0); Mean Corpuscular HGB Conc 32.5 % (32.0-36.0); Mean Corpuscular Hemoglobin 29.3 pg (27.0-34.0); Mean Platelet Volume 9.3 fL (7.0-11.0); Mono # (Auto) 0.7 th/mm3 (0.0-0.9); Mono % (Auto) 5.2 % (0.0-8.0); Neut # (Auto) 11.8 th/mm3 (1.8-7.7); Neut % (Auto) 84.4 % (16.0-70.0); Platelet Count 242 th/mm3 (150-450); Red Blood Count 3.36 mil/mm3 (4.50-5.90); Red Cell Distribution Width 16.4 % (11.6-17.2)
[2017-11-07 05:23] LABS: Albumin 1.7 g/dL (3.4-5.0); Anion Gap 7 meq/L (5-15); Aspartate Aminotransferase 73 U/L (15-37); Blood Urea Nitrogen 33 mg/dL (7-18); Calcium 7.8 mg/dL (8.5-10.1); Carbon Dioxide 29.3 meq/L (21.0-32.0); Chloride 118 meq/L (98-107); Glomerular Filtration Rate Greater Than 89 mL/min (>89); Glucose,Random 87 mg/dL (74-106); Sodium 154 meq/L (136-145)
[2017-11-07 05:24] LABS: Alanine Aminotransferase 106 U/L (12-78)
[2017-11-07 05:27] LABS: Alkaline Phosphatase 62 U/L (45-117); Total Protein 5.4 g/dL (6.4-8.2)
[2017-11-07 06:02] LABS: ABG Base Excess 3.4 mmol/L (-2-2); ABG PCO2 46 mmHg (38-42); ABG PO2 91 mmHg (61-120)
[2017-11-07] MEDS: Sodium Chloride 0.45 % Inj 1,000 ML IV.CONT SCH ×2 (07:00→17:38)
[2017-11-07] MEDS: Chlorhexidine 0.12% Oral Kit 15 ML UDC OROPHARYNG SCH ×2 (08:10→19:53)
[2017-11-07] MEDS: Enoxaparin Inj 30 MG/0.3 ML Syringe SQ SCH ×2 (08:10→20:01)
[2017-11-07] MEDS: Senna/Docusate Sodium 8.6/50 MG Tablet PO SCH ×2 (08:11→20:01)
[2017-11-07] MEDS: Famotidine 20 MG Tablet PO SCH ×2 (08:11→20:01)
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
[2017-11-08] MEDS: Oral Hygiene Kit OROPHARYNG SCH ×3 (00:27→11:42)
[2017-11-08] MEDS: Piperacil/Tazo 4.5 GM Premix 4.5 GM/100 ML BAG IV.SIG SCH ×2 (00:28→04:23)
[2017-11-08] MEDS: Propofol 1000 mg/100 ml Inj 1,000 MG/100 ML BOTTLE IV.CONT PRN ×4 (00:58→10:45)
[2017-11-08] MEDS: fentaNYL 10 mcg/mL Premix Drip 2,500 MCG/250 ML BAG IV.SIG PRN (03:27)
[2017-11-08] MEDS: Vancomycin Inj 1,500 MG in Sodium Chlor 0.9% Inj 500 ML IV.SIG SCH (04:23)
[2017-11-08] MEDS: Sodium Chloride 0.45 % Inj 1,000 ML IV.CONT SCH (04:24)
[2017-11-08] MEDS: Chlorhexidine 0.12% Oral Kit 15 ML UDC OROPHARYNG SCH (07:59)
[2017-11-08] MEDS: Senna/Docusate Sodium 8.6/50 MG Tablet PO SCH (07:59)
[2017-11-08] MEDS: Famotidine 20 MG Tablet PO SCH (07:59)
[2017-11-08] MEDS: Enoxaparin Inj 30 MG/0.3 ML Syringe SQ SCH (08:00)
[2017-11-08] MEDS ORDERED: HYDROmorphone PF Inj 2 MG/ML Vial IV.PUSH ONE ×2 (09:42)
[2017-11-08] MEDS ORDERED: HYDROmorphone PF Inj 2 MG/ML Vial IV.PUSH PRN (09:42)
[2017-11-08] MEDS ORDERED: Hyoscyamine Inj 0.5 MG/ML Ampul IV.PUSH ONE (09:42)
[2017-11-08] MEDS ORDERED: Acetaminophen 650 MG Supp RECTAL PRN (09:42)
[2017-11-08] MEDS ORDERED: Hyoscyamine Inj 0.5 MG/ML Ampul IV.PUSH PRN (09:42)
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
== END 2017-11-08 14:30 | disposition expired ==
LOC: NEDA 07:51 → NEPI 07:51 → N03 11:24
PROVIDERS: ADMIT Surgery; ATTEND Surgery